=== PATIENT | female | born 1930 | race Caucasian/White ===

== ENCOUNTER → 2017-06-27 | Outpatient (CLI) | payer MEDICARE, OTHER ==
--- NOTE | 2017-06-27 17:03 | RADIOLOGY REPORT (SQ) ---
EXAM DESCRIPTION: CHEST PA/LATERAL COMPLETED DATE/TIME: 06/27/2017 4:39 pm REASON FOR STUDY: COUGH COMPARISON: None. EXAM PARAMETERS: NUMBER OF VIEWS: two views TECHNIQUE: Digital Frontal and Lateral radiographic views of the chest acquired. RADIATION DOSE: NA LIMITATIONS: none FINDINGS: LUNGS AND PLEURA: No opacities, masses or pneumothorax. No pleural effusion. MEDIASTINUM AND HILAR STRUCTURES: No masses or contour abnormalities. HEART AND VASCULAR STRUCTURES: Heart normal size. No evidence for failure. BONES: No acute findings. HARDWARE: None in the chest. OTHER: No other significant finding. IMPRESSION: NO SIGNIFICANT RADIOGRAPHIC FINDING IN THE CHEST. TECHNICAL DOCUMENTATION: JOB ID: [id number] [employer]- All Rights Reserved
== END ==
LOC: OD 15:16
PROVIDERS: ATTEND Physician Assistant
DX: R05 Cough (principal)
CPT/HCPCS: 71020

== ENCOUNTER → 2017-08-14 | Outpatient (CLI) | payer MEDICARE, OTHER ==
--- NOTE | 2017-08-14 16:20 | RADIOLOGY REPORT (SQ) ---
EXAM DESCRIPTION: KNEE LEFT 4 VIEWS COMPLETED DATE/TIME: 08/14/2017 3:20 pm REASON FOR STUDY: PAIN IN LEFT KNEE M25.562 PAIN IN LEFT KNEE M54.42 LUMBAGO WITH SCIATICA, LEFT S [place] COMPARISON: None. NUMBER OF VIEWS: Four views. TECHNIQUE: AP, lateral, and both oblique radiographic images acquired of the left knee. LIMITATIONS: None. FINDINGS: MINERALIZATION: Normal. BONES: No acute fracture or dislocation. No worrisome bone lesions. JOINT: Trace suprapatellar knee joint effusion SOFT TISSUES: No soft tissue swelling. No radio-opaque foreign body. OTHER: No other significant finding. IMPRESSION: Trace suprapatellar knee joint effusion. No acute fracture or malalignment TECHNICAL DOCUMENTATION: JOB ID: [id number] [employer]- All Rights Reserved
--- NOTE | 2017-08-14 16:25 | RADIOLOGY REPORT (SQ) ---
EXAM DESCRIPTION: LUMBAR SPINE COMPLETE COMPLETED DATE/TIME: 08/14/2017 3:20 pm REASON FOR STUDY: LUMBAGO WITH SCIATICA, LEFT SIDE M25.562 PAIN IN LEFT KNEE M54.42 LUMBAGO WITH S CIATICA, LEFT SIDE COMPARISON: None. NUMBER OF VIEWS: Five views including obliques. TECHNIQUE: AP, lateral, oblique, and sacral radiographic images acquired of the lumbar spine. LIMITATIONS: None. FINDINGS: MINERALIZATION: Osteopenic SEGMENTATION: Normal. No transitional anatomy. ALIGNMENT: Degenerative convex leftward lumbar curvature from multilevel disc space narrowing VERTEBRAE: Maintained height. No fracture or worrisome bone lesion. DISCS: High-grade disc space loss of height at a L2-3, L3-4, and L4-5 POSTERIOR ELEMENTS: Pedicles and facets are intact. No pars defect or posterior arch defects. Multi level facet arthropathy HARDWARE: Clips right upper quadrant post cholecystectomy PARASPINAL SOFT TISSUES: Normal. PELVIS: Intact as visualized. No fractures or worrisome bone lesions. SI joints intact. OTHER: No other significant finding. IMPRESSION: No acute changes. Multilevel degenerative disc changes with degenerative convex leftwar d lumbar curvature TECHNICAL DOCUMENTATION: JOB ID: [id number] [employer]- All Rights Reserved
== END ==
LOC: OD 14:44
PROVIDERS: ATTEND Physician Assistant
DX: M25.562 Pain in left knee (principal); M54.42 Lumbago with sciatica, left side
CPT/HCPCS: 72110

== ENCOUNTER → 2017-09-12 | Outpatient (CLI) | payer MEDICARE, OTHER ==
--- NOTE | 2017-09-12 14:20 | RADIOLOGY REPORT (SQ) ---
EXAM DESCRIPTION: MRI LUMBAR SPINE WITHOUT COMPLETED DATE/TIME: 09/12/2017 1:38 pm REASON FOR STUDY: LOW BACK PAIN M54.5 LOW BACK PAIN COMPARISON: Recent radiographs. TECHNIQUE: Sagittal and Axial imaging includes T1, T2, STIR and gradient echo sequences. Coronal T2/ HASTE imaging. LIMITATIONS: None. FINDINGS: VISUALIZED UPPER ABDOMEN: Limited evaluation. No acute or suspicious findings suggested. SEGMENTATION: No transitional anatomy. The lowest well-developed disc space is labeled L5-S1. ALIGNMENT: Mild scoliosis. VERTEBRAE: Intact. BONE MARROW: No fracture or bone lesion or marrow replacement. DISC SIGNAL: Multilevel abnormal disc signal with height loss diffusely. Endplate irregularities, mo st pronounced at L3-4 and L4-5 with minimal associated marrow edema. POSTERIOR ELEMENTS: Generally intact. No pars defect evident. HARDWARE: None in the spine. CORD AND CONUS: Normal in size and signal intensity. Conus at the appropriate level. SOFT TISSUES: No aortic aneurysm seen. No bulky retroperitoneal adenopathy or mass. No paraspinal mas s or fluid. L1-L2: No significant spinal stenosis or exit foraminal stenosis. L2-L3: Broad disc bulge with slightly eccentric right paracentral prominence. Mild facet disease. F airly mild central narrowing. No high-grade foraminal stenosis. L3-L4: Generalized disc bulge. Slightly conspicuous left paracentral eccentric extension. Mild face t disease. Generally mild central stenosis. Moderate right foraminal stenosis. L4-L5: Broad disc bulge and facet overgrowth. Mild -moderate central narrowing with at least moderat e left foraminal stenosis. L5-S1: Broad left paracentral -foraminal protrusion superimposed on disc bulge. Regional mass effect on the ventral thecal sac. Posterior ligament thickening and facet arthropathy with up to moderate central narrowing. Moderate left foraminal stenosis. LOWER THORACIC: Incompletely imaged. No stenosis seen. SACRUM: Visualized upper sacrum intact. OTHER: No other significant findings. IMPRESSION: 1. Multilevel lumbar spondylosis without critical central narrowing. Detailed as above. Multilevel foraminal stenosis is also present, up to moderate. 2. No fracture or worrisome bone le anatoly. Mild scoliosis is present. TECHNICAL DOCUMENTATION: JOB ID: [id number]- All Rights Reserved
== END ==
LOC: RAD 13:01
PROVIDERS: ATTEND Physician Assistant
DX: M54.5 Low back pain (principal); M47.896 Other spondylosis, lumbar region
CPT/HCPCS: 72148

== ENCOUNTER 2017-11-11 09:01 | Emergency (ER) | payer MEDICARE, OTHER ==
--- NOTE | 2017-11-11 09:44 | ER Document Report ---
ED Medical Screen (RME) - General Chief Complaint: Urinary Problem Stated Complaint: URINATION ISSUE/PAIN Time Seen by Provider: 11/11/17 09:34 Information source: Patient Notes: 87 y.o female with a past medical history of HTN for which she takes Amlodipine who presents to the ED with urinary pain and urgency with the inability to empty her bladder fully that has been present for about a week and a half. She states that her she saw her PCP on concerning this issue. TRAVEL OUTSIDE OF THE [place] IN LAST 30 DAYS: No - Related Data Allergies/Adverse Reactions: ciprofloxacin [From Cipro] Allergy (Verified 11/11/17 09:06) sulfamethoxazole [From Bactrim] Allergy (Verified 11/11/17 09:06) trimethoprim [From Bactrim] Allergy (Verified 11/11/17 09:06) doxycycline Adverse Reaction (Severe, Verified 11/11/17 09:30) GI upset Past Medical History - General Information source: Patient - Social History Chew tobacco use (# tins/day): No Frequency of alcohol use: Rare Drug Abuse: None - Past Medical History Cardiac Medical History: Reports: Hx Hypertension Renal/ Medical History: Denies: Hx Peritoneal Dialysis Review of Systems - Review of Systems Gastrointestinal: Abdominal pain Genitourinary: See HPI, Urgency, Retention Physical Exam - Vital signs Vitals: Temp Pulse Resp BP Pulse Ox 98.2 F 87 20 130/61 H 94 11/11/17 09:08 11/11/17 09:08 11/11/17 09:08 11/11/17 09:08 11/11/17 09:08 - General General appearance: Appears well, Alert In distress: None - Respiratory Respiratory status: No respiratory distress Chest status: Nontender Breath sounds: Normal Chest palpation: Normal - Cardiovascular Rhythm: Regular Heart sounds: Normal auscultation Murmur: No - Abdominal Inspection: Normal Tenderness: Nontender - Neurological Neuro grossly intact: Yes Cognition: Normal Orientation: AAOx4 - Psychological Associated symptoms: Normal affect, Normal mood - Skin Skin Temperature: Warm Skin Moisture: Dry Skin Color: Normal Course - Vital Signs Vital signs: Temp Pulse Resp BP Pulse Ox 98.2 F 87 20 130/61 H 94 11/11/17 09:08 11/11/17 09:08 11/11/17 09:08 11/11/17 09:08 11/11/17 09:08 Scribe Documentation - Scribe Written by Jo:: Jo Maradiaga, 11/11/2017 0946 acting as scribe for :: Hugo
[2017-11-11 10:20] LABS: APPEARANCE,URINE CLEAR; BILIRUBIN,URINE NEGATIVE (NEGATIVE); COLOR,URINE AMBER; GLUCOSE, URINE NEGATIVE (NEGATIVE); KETONES,URINE NEGATIVE (NEGATIVE); LEUKOCYTE ESTERASE,URINE NEGATIVE (NEGATIVE); NITRITE,URINE POSITIVE (NEGATIVE); PROTEIN,URINE NEGATIVE (NEGATIVE); URINE SPECIFIC GRAVITY 1.008
[2017-11-11 10:21] LABS: ABSOLUTE EOSINOPHILS # (AUTO) 0.1 10^3/uL (0.0-0.6); ABSOLUTE LYMPHOCYTES (AUTO) 1.7 10^3/uL (0.5-4.7); ABSOLUTE MONOCYTES (AUTO) 0.8 10^3/uL (0.1-1.4); ABSOLUTE NEUT (AUTO) 3.1 10^3/uL (1.7-8.2); BASOPHILS % (AUTO) 0.4 % (0-2); EOSINOPHILS % (AUTO) 1.2 % (0-6); HEMATOCRIT 36.5 % (36.0-47.0); HEMOGLOBIN 12.4 g/dL (12.0-15.5); LYMPHOCYTES % (AUTO) 29.7 % (13-45); MEAN CORPUSCULAR HEMOGLOBIN 31.9 pg (27.0-33.4); MEAN CORPUSCULAR VOLUME 94 fl (80-97); MONOCYTES % (AUTO) 13.9 % (3-13); PLATELET COUNT 188 10^3/uL (150-450); RED BLOOD COUNT 3.89 10^6/uL (3.72-5.28); RED CELL DISTRIBUTION WIDTH 14.2 % (11.5-14.0); SEGMENTED NEUTROPHILS % (AUTO) 54.8 % (42-78); TOTAL CELLS COUNTED % (AUTO) 100 %; WHITE BLOOD COUNT 5.6 10^3/uL (4.0-10.5)
[2017-11-11 10:45] LABS: ALANINE AMINOTRANSFERASE 21 U/L (9-52); ALBUMIN 4.4 g/dL (3.5-5.0); ALKALINE PHOSPHATASE 64 U/L (38-126); ANION GAP 17 (5-19); ASPARTATE AMINO TRANSFERASE 25 U/L (14-36); BILIRUBIN,TOTAL 0.9 mg/dL (0.2-1.3); BLOOD UREA NITROGEN 14 mg/dL (7-20); CALCIUM 9.4 mg/dL (8.4-10.2); CARBON DIOXIDE 21 mmol/L (22-30); CHLORIDE 104 mmol/L (98-107); GLUCOSE 87 mg/dL (75-110); SODIUM 141.6 mmol/L (137-145); TOTAL PROTEIN 7.2 g/dL (6.3-8.2)
--- NOTE | 2017-11-11 11:08 | RADIOLOGY REPORT (SQ) ---
EXAM DESCRIPTION: U/S RETROPERITON (RENAL/AORTA) COMPLETED DATE/TIME: 11/11/2017 10:59 am REASON FOR STUDY: urinary hesitancy, eval kidney anatomy and bladder COMPARISON: None. TECHNIQUE: Dynamic and static grayscale images acquired of the kidneys and bladder with pre and post void bladder volume obtain and recorded on PACS. Additional selected color Doppler and spectral image s recorded. LIMITATIONS: None. FINDINGS: RIGHT KIDNEY: Normal size. Normal echogenicity. No solid or suspicious masses. No hydronep hrosis. No calcifications. LEFT KIDNEY: Normal size. Normal echogenicity. No solid or suspicious masses. No hydronephrosis. No calcifications. BLADDER: No masses. Prevoid volume 209.0 mL. Postvoid volume 185.9 mL. OTHER FINDINGS: No other significant finding. IMPRESSION: SIGNIFICANT POSTVOID BLADDER VOLUME OF 185.9 mL. OTHERWISE UNREMARKABLE RENAL AND BLADD ER ULTRASOUND. TECHNICAL DOCUMENTATION: JOB ID: [id number] [employer]- All Rights Reserved Reading location - IP/workstation name: [email or web address]
[2017-11-11] MEDS ORDERED: CEFTRIAXONE INJ 1000 MG VIAL IM ONE (11:39)
[2017-11-11] MEDS ORDERED: LIDOCAINE 1% INJ-PF (10 MG/ML) 30 ML SDV INJ ONE (11:39)
--- NOTE | 2017-11-11 11:43 | ER Document Report ---
ED GI/ - General Chief Complaint: Urinary Problem Stated Complaint: URINATION ISSUE/PAIN Time Seen by Provider: 11/11/17 09:34 Mode of Arrival: Ambulatory Information source: Patient Notes: Patient is an 87-year-old female who presents to the ER today for burning with urination 1 week. Patient was seen by her primary care provider and placed on Keflex, states that she is still burning with urination and now feels like she cannot empty her bladder. She states when she urinates she only urinates a little bit at a time but feels like she has to go frequently. She denies any fevers or chills, admits to some low back pain. TRAVEL OUTSIDE OF THE [place] IN LAST 30 DAYS: No - Related Data Allergies/Adverse Reactions: ciprofloxacin [From Cipro] Allergy (Verified 11/11/17 09:06) sulfamethoxazole [From Bactrim] Allergy (Verified 11/11/17 09:06) trimethoprim [From Bactrim] Allergy (Verified 11/11/17 09:06) doxycycline Adverse Reaction (Severe, Verified 11/11/17 09:30) GI upset Past Medical History - General Information source: Patient - Social History Smoking Status: Never Smoker Chew tobacco use (# tins/day): No Frequency of alcohol use: Rare Drug Abuse: None Family History: Reviewed & Not Pertinent Patient has suicidal ideation: No Patient has homicidal ideation: No - Past Medical History Cardiac Medical History: Reports: Hx Hypertension Pulmonary Medical History: Reports: Hx Pneumonia Renal/ Medical History: Denies: Hx Peritoneal Dialysis Past Surgical History: Reports: Hx Abdominal Surgery - zipper d/c, Hx Appendectomy, Hx Cholecystectomy, Hx Hysterectomy, Hx Orthopedic Surgery - shane feet Review of Systems - Review of Systems Constitutional: No symptoms reported EENT: No symptoms reported Cardiovascular: No symptoms reported Respiratory: No symptoms reported Gastrointestinal: No symptoms reported Genitourinary: See HPI Female Genitourinary: No symptoms reported Musculoskeletal: No symptoms reported Skin: No symptoms reported Hematologic/Lymphatic: No symptoms reported Neurological/Psychological: No symptoms reported Physical Exam - Vital signs Vitals: Temp Pulse Resp BP Pulse Ox 98.2 F 87 20 130/61 H 94 11/11/17 09:08 11/11/17 09:08 11/11/17 09:08 11/11/17 09:08 11/11/17 09:08 - Notes Notes: PHYSICAL EXAMINATION: GENERAL: Well-appearing and in no acute distress. HEAD: Atraumatic, normocephalic. EYES: Pupils equal round and reactive to light, extraocular movements intact, sclera anicteric, conjunctiva are normal. NECK: Normal range of motion, supple without lymphadenopathy LUNGS: CTAB and equal. No wheezes rales or rhonchi. HEART: Regular rate and rhythm without murmurs ABDOMEN: Soft, suprapubic tenderness. No guarding, no rebound BACK: no vertebral tenderness, normal ROM GI/: Mild bilateral CVA tenderness EXTREMITIES: Normal range of motion, no pitting edema. No cyanosis. NEUROLOGICAL: Cranial nerves grossly intact. Normal sensory/motor exams. PSYCH: Normal mood, normal affect. SKIN: Warm, Dry, normal turgor, no rashes or lesions noted Course - Re-evaluation Re-evalutation: 11/11/17 17:47 urinalysis reveals nitrites, lab work is otherwise unremarkable today. Patient is allergic to Bactrim, Cipro and doxycycline, ultrasound reveals residual volume of 189 mL after patient just urinated. Otherwise ultrasound of the bladder is unremarkable. Patient had a straight catheterization here which relieved almost 300 mL of urine and will be placed on Omnicef. Urine culture is pending at this time. - Vital Signs Vital signs: Temp Pulse Resp BP Pulse Ox 97.7 F 73 16 144/60 H 94 11/11/17 12:27 11/11/17 12:27 11/11/17 12:27 11/11/17 12:27 11/11/17 12:27 - Laboratory Result Diagrams: 11/11/17 09:49 11/11/17 09:49 Laboratory results interpreted by me: 11/11/17 11/11/17 11/11/17 09:18 09:49 09:49 RDW 14.2 H Monocytes % 13.9 H Carbon Dioxide 21 L Urine Nitrite POSITIVE H Urine Urobilinogen 4.0 H Discharge - Discharge Clinical Impression: UTI (urinary tract infection) Qualifiers: Urinary tract infection type: site unspecified Hematuria presence: without hematuria Qualified Code(s): N39.0 - Urinary tract infection, site not specified Condition: Stable Disposition: HOME, SELF-CARE Additional Instructions: Return immediately for any new or worsening symptoms. Follow up with primary care provider, call tomorrow to make followup appointment. Prescriptions: Cefdinir [Omnicef 300 mg Capsule] 1 cap PO BID #28 capsule Phenazopyridine HCl [Pyridium 200 mg Tablet] 200 mg PO TID #15 tablet Referrals: MATT HAGAN PA [PHYSICIAN [employer] [facility] [employer]] - Follow up as needed
[2017-11-11 12:29] VITALS: BP 144/60
== END 2017-11-11 12:27 | disposition home or self-care (01) ==
LOC: ER 09:01
DX: N39.0 Urinary tract infection, site not specified (principal); R39.198 Other difficulties with micturition; R30.9 Painful micturition, unspecified
CPT/HCPCS: 99284; 96372; 51701; 36415; 87086; 85025; 80053; 81001; 76770; J3490; J0696

== ENCOUNTER 2017-11-14 07:10 | Emergency (ER) | payer OTHER ==
[2017-11-14] MEDS ORDERED: PANTOPRAZOLE SODIUM 40 MG VIAL IV PRN (08:17)
[2017-11-14] MEDS ORDERED: NORMAL SALINE 1000 ML 1,000 ML IV PRN (08:17)
--- NOTE | 2017-11-14 08:25 | ER Document Report ---
ED GI/ - General Chief Complaint: Urinary Problem Stated Complaint: PAINFUL URINATION Time Seen by Provider: 11/14/17 08:16 Information source: Patient Notes: 87 years old female who was diagnosed with UTI early last week, was given antibiotic. She states the antibiotic irritated the stomach having loose stools and which was bloody. She had about 3 bloody stools within the 24 hours. Therefore present to the ED. She denies any abdominal pain nausea vomiting. Denies any weakness or tiredness. Denies any chest pain or shortness of breath. TRAVEL OUTSIDE OF THE [place] IN LAST 30 DAYS: No - HPI Patient complains to provider of: Abdominal pain Timing/Duration: Gradual Severity at maximum: Moderate Context: denies: Bad food, Lifting, Out of the country travel, , Recent trauma, Other Location: No: Chest pain, Epigastric, LUQ, LLQ, RUQ, RLQ, Left flank, Right flank, Low back, Suprapubic, Pelvis, Vaginal, Vulvar, Rectal, Other - Related Data Allergies/Adverse Reactions: ciprofloxacin [From Cipro] Allergy (Verified 11/11/17 09:06) sulfamethoxazole [From Bactrim] Allergy (Verified 11/11/17 09:06) trimethoprim [From Bactrim] Allergy (Verified 11/11/17 09:06) doxycycline Adverse Reaction (Severe, Verified 11/11/17 09:30) GI upset Past Medical History - General Information source: Patient - Social History Smoking Status: Never Smoker Cigarette use (# per day): No Chew tobacco use (# tins/day): No Smoking Education Provided: No Frequency of alcohol use: Rare Drug Abuse: None Lives with: Family Family History: Reviewed & Not Pertinent - Past Medical History Cardiac Medical History: Reports: Hx Hypertension Pulmonary Medical History: Reports: Hx Pneumonia Renal/ Medical History: Denies: Hx Peritoneal Dialysis Past Surgical History: Reports: Hx Abdominal Surgery - zipper d/c, Hx Appendectomy, Hx Cholecystectomy, Hx Hysterectomy, Hx Orthopedic Surgery - shane feet Review of Systems - Review of Systems Constitutional: denies: No symptoms reported, See HPI, Chills, Diaphoresis, Fever, Malaise, Weakness, Other, Weight gain, Weight loss, Recent illness EENT: denies: No symptoms reported, See HPI, Eye pain, Eye discharge, Blurred vision, Tearing, Double vision, Ear pain, Ear discharge, Nose pain, Nose congestion, Nose discharge, Sinus pressure, Sinus discharge, Throat pain, Difficulty swallowing, Throat swelling, Mouth pain, Mouth swelling, Dental problem, Vertigo, Other Cardiovascular: denies: No symptoms reported, See HPI, Chest pain, Palpitations , Heart racing, Orthopnea, Dyspnea, Syncope, Dizziness, Lightheaded, Edema, Other, Paroxysmal Nocturnal Dysp Respiratory: denies: No symptoms reported, See HPI, Cough, Hurts to breathe, Hemoptysis, Short of breath, Sputum, Stridor, Wheezing, Other Gastrointestinal: See HPI Genitourinary: denies: No symptoms reported, See HPI, Burning, Dysuria, Discharge, Frequency, Flank pain, Hematuria, Incontinence, Pain, Urgency, Retention, Other Female Genitourinary: denies: No symptoms reported, See HPI, Last menstrual period, , Post menopausal, Heavy/abnormal periods, Irregular period, Vaginal bleeding, Vaginal discharge, Vaginal odor, Painful intercourse, Other Musculoskeletal: denies: No symptoms reported, See HPI, Back pain, Gout, Joint pain, Joint swelling, Muscle pain, Muscle stiffness, Neck pain, Deformity, Leg swelling, Ankle swelling, Other Skin: denies: No symptoms reported, See HPI, Change in color, Change in hair/ nails, Dryness, Lesions, Lumps, Rash, Other Physical Exam - Vital signs Vitals: Temp Pulse Resp BP Pulse Ox 98.0 F 78 20 106/79 96 11/14/17 07:16 11/14/17 07:16 11/14/17 07:16 11/14/17 07:16 11/14/17 07:16 - Notes Notes: PHYSICAL EXAMINATION: GENERAL: Well-appearing, well-nourished and in no acute distress. Appears to be anxious about the bleeding. HEAD: Atraumatic, normocephalic. EYES: Pupils equal round and reactive to light, extraocular movements intact, conjunctiva are normal. ENT: Nares patent, oropharynx clear without exudates. Moist mucous membranes. NECK: Normal range of motion, supple without lymphadenopathy LUNGS: Breath sounds clear to auscultation bilaterally and equal. No wheezes rales or rhonchi. HEART: Regular rate and rhythm without murmurs ABDOMEN: Soft, nontender, nondistended abdomen. No guarding, no rebound. No masses appreciated. Female : deferred Musculoskeletal: Normal range of motion, no pitting or edema. No cyanosis. NEUROLOGICAL: Cranial nerves grossly intact. Normal speech, normal gait. Normal sensory, motor exams PSYCH: Normal mood, normal affect. SKIN: Warm, Dry, normal turgor, no rashes or lesions noted. Course - Vital Signs Vital signs: Temp Pulse Resp BP Pulse Ox 98.0 F 78 20 106/79 96 11/14/17 07:16 11/14/17 07:16 11/14/17 07:16 11/14/17 07:16 11/14/17 07:16 - Laboratory Result Diagrams: 11/14/17 09:21 11/14/17 09:21 Laboratory results interpreted by me: 11/14/17 11/14/17 11/14/17 07:40 09:21 09:21 Hgb 11.8 L Hct 34.8 L RDW 14.4 H Chloride 111 H Carbon Dioxide 21 L Urine Nitrite POSITIVE H Urine Urobilinogen 4.0 H - Diagnostic Test Radiology reviewed: Reports reviewed Radiology results interpreted by me: 11/14/17 11:19 CTA of the abdomen shows no active bleeding, reported by radiologist, no other pathology noted. Rectal exam was positive for diego blood and hemorrhoids Discharge - Discharge Clinical Impression: Lower GI bleeding Abdominal pain Qualifiers: Abdominal location: epigastric Qualified Code(s): R10.13 - Epigastric pain Hemorrhoids Qualifiers: Hemorrhoid type: second degree Qualified Code(s): K64.1 - Second degree hemorrhoids UTI (urinary tract infection) Qualifiers: Urinary tract infection type: acute cystitis Hematuria presence: without hematuria Qualified Code(s): N30.00 - Acute cystitis without hematuria Condition: Fair Disposition: HOME, SELF-CARE Instructions: Abdominal Pain ([facility]), Hemorrhoids ([facility]) Prescriptions: Hydrocortisone Acetate [Anusol-Hc] 25 mg RC BID #14 supp.rect Nitrofurantoin Monohyd/M-Cryst [Nitrofurantoin [place]-Mcr 100 mg] 100 mg PO BID # 14 capsule
[2017-11-14 09:52] LABS: APPEARANCE,URINE SLIGHTLY-CLOUDY; BILIRUBIN,URINE NEGATIVE (NEGATIVE); GLUCOSE, URINE NEGATIVE (NEGATIVE); KETONES,URINE NEGATIVE (NEGATIVE); LEUKOCYTE ESTERASE,URINE NEGATIVE (NEGATIVE); NITRITE,URINE POSITIVE (NEGATIVE); PROTEIN,URINE NEGATIVE (NEGATIVE); URINE SPECIFIC GRAVITY 1.013
[2017-11-14 09:56] LABS: COLOR,URINE ORANGE
[2017-11-14 10:01] LABS: ALANINE AMINOTRANSFERASE 21 U/L (9-52); ALBUMIN 4.2 g/dL (3.5-5.0); ALKALINE PHOSPHATASE 61 U/L (38-126); ANION GAP 10 (5-19); ASPARTATE AMINO TRANSFERASE 24 U/L (14-36); BILIRUBIN,DIRECT 0.1 mg/dL (0.0-0.4); BILIRUBIN,TOTAL 1.1 mg/dL (0.2-1.3); BLOOD UREA NITROGEN 15 mg/dL (7-20); CALCIUM 9.4 mg/dL (8.4-10.2); CARBON DIOXIDE 21 mmol/L (22-30); CHLORIDE 111 mmol/L (98-107); GLUCOSE 85 mg/dL (75-110); POTASSIUM 3.8 mmol/L (3.6-5.0); SODIUM 142.3 mmol/L (137-145); TOTAL PROTEIN 6.9 g/dL (6.3-8.2)
[2017-11-14 10:13] LABS: ABSOLUTE EOSINOPHILS # (AUTO) 0.1 10^3/uL (0.0-0.6); ABSOLUTE LYMPHOCYTES (AUTO) 1.5 10^3/uL (0.5-4.7); ABSOLUTE MONOCYTES (AUTO) 0.7 10^3/uL (0.1-1.4); ABSOLUTE NEUT (AUTO) 3.5 10^3/uL (1.7-8.2); BASOPHILS % (AUTO) 0.3 % (0-2); HEMATOCRIT 34.8 % (36.0-47.0); HEMOGLOBIN 11.8 g/dL (12.0-15.5); MEAN CORPUSCULAR HEMOGLOBIN 31.6 pg (27.0-33.4); MEAN CORPUSCULAR HGB CONC 33.8 g/dL (32.0-36.0); MEAN CORPUSCULAR VOLUME 93 fl (80-97); MONOCYTES % (AUTO) 11.3 % (3-13); PLATELET COUNT 197 10^3/uL (150-450); RED BLOOD COUNT 3.73 10^6/uL (3.72-5.28); RED CELL DISTRIBUTION WIDTH 14.4 % (11.5-14.0); SEGMENTED NEUTROPHILS % (AUTO) 61.4 % (42-78); TOTAL CELLS COUNTED % (AUTO) 100 %; WHITE BLOOD COUNT 5.8 10^3/uL (4.0-10.5)
--- NOTE | 2017-11-14 10:45 | RADIOLOGY REPORT (SQ) ---
EXAM DESCRIPTION: CTA ABDOMEN/PELVIS W WO COMPLETED DATE/TIME: 11/14/2017 10:13 am REASON FOR STUDY: Rule out intestinal bleed COMPARISON: None. TECHNIQUE: CT scan of the abdominal aorta extending to the iliac bifurcation performed with intraven ous contrast using helical scanning technique with dynamic intravenous contrast injection. Images rev iewed with lung, soft tissue, and bone windows. Reconstructed coronal and sagittal MPR images reviewe d. All images stored on PACS. Advanced 3D imaging as volume rendering, MIPS, SSD performed? yes All CT scanners at this facility use dose modulation, iterative reconstruction, and/or weight based d osing when appropriate to reduce radiation dose to as low as reasonably achievable (ALARA). [facility]: Dose Right [facility]: CareDose [facility]: Dose Right [facility]: Teradose 4D [facility]: [employer] CONTRAST TYPE AND DOSE: contrast/concentration: Isovue 370.00 mg/ml; Total Contrast Delivered: 55.0 ml; Total Saline Delivered: 60.0 ml RENAL FUNCTION: Creatinine 0.88 LIMITATIONS: None. FINDINGS: POST-CONTRAST IMAGING: AORTA AND VESSELS: No aneurysm. No dissection. Scattered vascular calcifications are identified caty cially at the origin of the celiac axis. Minimal vascular calcifications are identified at the origi n of the superior mesenteric artery and renal arteries. LUNG BASES: No significant findings. No nodules or infiltrates. Minimal linear densities are identif ied in the lung bases most consistent with subsegmental atelectasis. Moderate size hiatal hernia is identified. LIVER: Normal size. No masses or dilated ducts. A small focal relative low density area is identifie d in the left lobe of the liver which is too small to further characterize by CT. SPLEEN: Normal size. No focal lesions. PANCREAS: No masses. No significant calcifications. No adjacent inflammation or peripancreatic fluid collections. There is some prominence of the pancreatic duct. GALLBLADDER: Status post cholecystectomy ADRENAL GLANDS: No significant masses or asymmetry. RIGHT KIDNEY AND URETER: No mass, calculi or urinary tract obstruction. LEFT KIDNEY AND URETER: No mass, calculi or urinary tract obstruction. Small renal cyst is identifie d. RETROPERITONEUM: No retroperitoneal adenopathy, hemorrhage or masses. BOWEL AND PERITONEAL CAVITY: No masses or inflammatory changes. No free fluid or peritoneal masses. Multiple colonic diverticula are identified in the sigmoid colon without CT evidence for diverticulit is. APPENDIX: Not identified ABDOMINAL WALL: No masses. No hernias. BONY STRUCTURES: No significant or acute findings. Degenerative changes are identified in the lumbar spine 3-D IMAGING: Confirms the above findings. OTHER: No other significant finding. IMPRESSION: NO ABDOMINAL AORTIC ANEURYSM, DISSECTION or. Vascular calcifications as noted above. NO other SIGNIFICANT FINDINGS IN THE ABDOMEN. Other findings as noted above TECHNICAL DOCUMENTATION: JOB ID: [id number] Quality ID # [id number]: Final reports with documentation of one or more dose reduction techniques (e.g., Au tomated exposure control, adjustment of the mA and/or kV according to patient size, use of iterative reconstruction technique) 2010 [employer]- All Rights Reserved Reading location - IP/workstation name: [email or web address]
[2017-11-14 12:07] VITALS: BP 132/62
== END 2017-11-14 12:53 | disposition home or self-care (01) ==
LOC: ER 07:10
DX: N30.00 Acute cystitis without hematuria (principal); K92.2 Gastrointestinal hemorrhage, unspecified; K64.1 Second degree hemorrhoids; R10.13 Epigastric pain; R39.198 Other difficulties with micturition; R30.9 Painful micturition, unspecified; R19.7 Diarrhea, unspecified
CPT/HCPCS: 99284; 96365; 96366; 36415; 85025; 82272; 80053; 81001; 74174; S0164; J7030

== ENCOUNTER 2018-03-27 09:44 | Day surgery (SDC) | payer MEDICARE, OTHER ==
--- NOTE | 2018-03-22 13:37 | EKG REPORT ---
SEVERITY:- ABNORMAL ECG - SINUS RHYTHM PROBABLE LEFT ATRIAL ABNORMALITY LEFT ANTERIOR FASCICULAR BLOCK : Confirmed by: Víctor Lay MD 22-Mar-2018 13:36:38
[~2018-03-27 09:44] MED LIST: CEFAZOLIN 2 GM/D5W RTU 2 GM/50 ML RTUPB IV SCH; DEXAMETHASONE SOD PHOSPHATE INJ 4 MG/1 ML VIAL ONE; FENTANYL CITRATE INJ/PF 100 MCG/2 ML AMPUL ONE; LACTATED RINGERS 1000 ML IV PRN; LIDOCAINE 2% INJ-PF (20 MG/ML) 10 ML AMPUL ONE; MIDAZOLAM 2 MG/2 ML INJ ONE; ONDANSETRON HCL INJ/PF 4 MG/2 ML SDV ONE; PROPOFOL INJ 200 MG/20 ML VIAL IV ONE
[2018-03-27] MEDS ORDERED: CEFAZOLIN 1 GM/D5W RTU 1 GM/50 ML RTUPB IV ONE (10:04)
[2018-03-27] MEDS ORDERED: LIDOCAINE 2% URO-JET 5 ML KIT ONE (12:00)
[2018-03-27] MEDS ORDERED: PROMETHAZINE HCL INJ 25 MG/1 ML VIAL IV PRN ×2 (12:18)
[2018-03-27] MEDS ORDERED: MEPERIDINE HCL/PF INJ 25 MG/1 ML DISP.SYRIN IV PRN (12:18)
[2018-03-27] MEDS ORDERED: FENTANYL CITRATE INJ/PF 100 MCG/2 ML AMPUL IV PRN ×2 (12:18)
[2018-03-27] MEDS ORDERED: DIPHENHYDRAMINE HCL 50 MG/ML VIAL IV PRN (12:18)
[2018-03-27] MEDS ORDERED: ONDANSETRON HCL INJ/PF 4 MG/2 ML SDV IV PRN (12:18)
[2018-03-27] MEDS ORDERED: FENTANYL CITRATE INJ/PF 100 MCG/2 ML AMPUL ONE ×2 (12:19→12:21)
[2018-03-27] MEDS ORDERED: SUCCINYLCHOLINE CHLORIDE INJ 200 MG/10 ML VIAL ONE (12:25)
[2018-03-27] MEDS: MEPERIDINE HCL/PF INJ 25 MG/1 ML DISP.SYRIN ONE ×2 (13:53→13:58)
--- NOTE | 2018-03-27 14:15 | RADIOLOGY REPORT (SQ) ---
EXAM DESCRIPTION: PYELOGRAM RETROGRADE COMPLETED DATE/TIME: 03/27/2018 1:45 pm REASON FOR STUDY: BILATERAL CYSTO RETROGRADES AND URETERAL DIALATION N35.9 URETHRAL STRICTURE, UNSP ECIFIED N39.0 URINARY TRACT INFECTION, SITE NOT SPECIFIED COMPARISON: CT abdomen and pelvis 11/14/2017 Renal ultrasound 11/11/2017 MRI lumbar spine 09/12/2017 FLUOROSCOPY TIME: 41 seconds 8 digital radiographic images saved to PACS. TECHNIQUE: Intra-operative images acquired during surgical procedure to evaluate progress. NUMBER OF IMAGES: 8 digital radiographic images saved to pac's LIMITATIONS: None. FINDINGS: Bilateral retrograde injections were performed in the cystoscopy suite. No urothelial les ions. Limited view of the bladder are unremarkable. Old calcified right retroperitoneal lymph node. Please see the operative report for further details IMPRESSION: Intra procedural imaging and fluoro COMMENT: Quality ID [id number]: Final reports for procedures using fluoroscopy that document radiation exp osure indices, or exposure time and number of fluorographic images (if radiation exposure indices are not available) Please consult full operative report of the attending physician for description of the procedure. TECHNICAL DOCUMENTATION: JOB ID: [id number] [employer]- All Rights Reserved Reading location - IP/workstation name: [email or web address]
--- NOTE | 2018-03-27 14:21 | OPERATIVE REPORT E ---
Operative Report NAME: UBALDO FELIX : 1930 AGE: 88Y DATE OF SURGERY: 03/27/2018 ROOM: PREOPERATIVE DIAGNOSIS: Urethral stenosis. 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 SURGEON: LAVON WEBER M.D. [employer]: None. SPECIMENS: Bladder tumor. ESTIMATED BLOOD LOSS: Minimum. COMPLICATIONS: None. INDICATIONS: The patient is an 88-year-old lady with a history of urethral stenosis. She was dilated almost 20 years ago. She had extended relief following that dilation. She has had more irritative voiding symptoms of late and feels she needs another urethral dilation. Urethral sounds were not available in the office so she is having cystoscopy with urethral dilation in the operating room. OPERATION: After the patient was identified in the preop holding area, she was brought to the Operating Room. Timeout was performed, where the correct patient and procedure were confirmed. She was then given sedation. She was next carefully positioned in a dorsolithotomy position. All pressure points were padded. She was prepped and draped in routine sterile manner. URETHRAL DILATION: A 24-36 Green[place]ic female urethral sound was used to dilate the urethra. Initially there was some stenosis encountered in the mid urethra but once this area was dilated with a 24-Greenlandic sound, the remaining dilations proceeded without difficulty. CYSTOSCOPY WITH TURBT: A #23 sheath and panendoscope was used to examine the urethra. There was as stenotic area in the mid-urethra but no evidence of a tumor. It appeared to be scar tissue. The bladder though showed a field change, the largest area was on the posterior bladder wall extending up to the trigone measuring 10 x 5 cm and there were patchy areas on the trigone and posterolateral to both ureteral orifices. There were several papillary lesions as well. These were resected with a resectoscope loop. The patient had been given general anesthesia to allow for resection of the tumors. There is a deep resection in one area. There is no evidence of perforation. The base and perforated sections were cauterized with the resectoscope loop as was the remaining bladder tumor appearing areas in the bladder. Hemostasis was present. BILATERAL RETROGRADES AND CYSTOGRAM: An open-ended catheter was positioned at the right ureteral orifice. Total of 5 mL of Omnipaque was used to fill the right ureter and upper collecting system. There is no evidence of obstruction or filling defect. IMPRESSION: Normal right retrograde. An open-ended catheter was positioned at the left ureteral orifice. A total of 5 mL of Omnipaque was used to fill the left ureter and upper collecting system. There is no evidence of filling defect or obstruction. IMPRESSION: Normal left retrograde. CYSTOGRAM: A total of 250 mL of contrast was used to fill the bladder. There is no evidence of any extravasation on the filling phase. The bladder was then emptied. Again, there was no evidence of extravasation. IMPRESSION: NORMAL CYSTOGRAM. The patient was returned to the recovery room having tolerated this procedure well. PLAN: I will leave the Corey catheter in for 1 week since she had an area of deep resection in her bladder. I will prescribe anticholinergic medication (Sanctura 60 mg daily) and cephalexin 5 mg q.i.d. x7 days. She will come back in 1 week to go over her pathology and remove her catheter. DICTATING PHYSICIAN: LAVON WEBER M.D. [id number] PHY#: [id number] ID: [id number] JOB#: [id number] ACCT: [id number] cc:LAVON WEBER M.D. >
[2018-03-27 16:16] VITALS: BP 114/63
== END 2018-03-27 16:20 | disposition home or self-care (01) ==
LOC: OROUT 09:44
PROVIDERS: ATTEND Urology
PROC: 0TBB8ZX Excision of Bladder, Via Natural or Artificial Opening Endoscopic, Diagnostic (ICD-10-PCS; principal; 2018-03-27 12:00)
DX: N35.9 Urethral stricture, unspecified (principal); N30.00 Acute cystitis without hematuria; N30.01 Acute cystitis with hematuria; I10 Essential (primary) hypertension; K21.9 Gastro-esophageal reflux disease without esophagitis
CPT/HCPCS: 93005; 87086; 88162; 88342 ×2; 88341 ×2; 88305 ×2; 74420; 93010; 52240; C1758; J2250; J0690; J1100; J3010; J2175; J0330; J2405; J2704; J3490; 910

== ENCOUNTER 2018-04-21 12:25 | Inpatient (IN) | payer MEDICARE, OTHER ==
[2018-04-21] MEDS ORDERED: ONDANSETRON 4 MG TAB.RAPDIS PO ONE (12:45)
[2018-04-21] MEDS ORDERED: NORMAL SALINE 1000 ML 1,000 ML IV ONE (12:45)
[2018-04-21] MEDS ORDERED: ASPIRIN 81 MG TABLET, CHEWABLE PO ONE (12:45)
--- NOTE | 2018-04-21 12:54 | ER Document Report ---
ED Medical Screen (RME) - General Mode of Arrival: Ambulatory Information source: Patient TRAVEL OUTSIDE OF THE [place] IN LAST 30 DAYS: No <LELA MANZANO - Last Filed: 04/21/18 12:49> <GLENNA HEARD - Last Filed: 04/21/18 13:26> - General Chief Complaint: Nausea Stated Complaint: NAUSEA, BACK PAIN Time Seen by Provider: 04/21/18 12:35 Notes: Patient is a 88 year old female with arthritis, HTN, and acid reflux presents to the emergency department complaining of nausea, weakness, diarrhea, and decreased appetite onset the last few weeks. Patient states her nausea has increasingly worsened and she has been unable to hold any food down recently further stating the thought of eating makes her nauseous. Patient states drinking sprite seems to relive her nausea. Daughter at bedside states the patient is also losing weight. Patient describes her bowel movement as constipation in the morning and diarrhea by the end of the day. She also complains of body aches all over, particularly in her back. Patient denies any vomiting or abdominal pain. Daughter states patient recently had a bladder dilation and mass removal for which she is awaiting results. GENERAL: In a wheelchair. Alert, interacts well. No acute distress. HEAD: Normocephalic, Atraumatic. NECK: Full range of motion. Supple. Trachea midline. LUNGS: Clear to auscultation bilaterally, no wheezes, rales, or rhonchi. No respiratory distress. HEART: Regular rate and rhythm. No murmurs, gallops, or rubs. ABDOMEN: Soft, non-tender. Non-distended. Bowel sounds present in all 4 quadrants. EXTREMITIES: Moves all four extremities spontaneously. PSYCH: Normal affect, normal mood. I have greeted and performed a rapid initial assessment of this patient. A comprehensive ED assessment and evaluation of the patient, analysis of test results and completion of the medical decision making process will be conducted by additional ED providers. (LELA MANZANO) - Related Data Allergies/Adverse Reactions: doxycycline Allergy (Severe, Verified 04/21/18 12:26) GI upset nitrofurantoin [From Macrobid] Allergy (Severe, Verified 04/21/18 12:26) headaches, nausea celecoxib [From Celebrex] Allergy (Verified 04/21/18 12:26) ciprofloxacin [From Cipro] Allergy (Verified 04/21/18 12:26) oxycodone Allergy (Verified 04/21/18 12:26) sulfamethoxazole [From Bactrim] Allergy (Verified 04/21/18 12:26) trimethoprim [From Bactrim] Allergy (Verified 04/21/18 12:26) Past Medical History - Social History Chew tobacco use (# tins/day): No Frequency of alcohol use: None Drug Abuse: None - Past Medical History Cardiac Medical History: Reports: Hx Hypertension Denies: Hx Coronary Artery Disease, Hx Heart Attack Pulmonary Medical History: Reports: Hx Pneumonia - 2014 Denies: Hx Asthma, Hx Bronchitis, Hx COPD Neurological Medical History: Denies: Hx Cerebrovascular Accident, Hx Seizures Renal/ Medical History: Denies: Hx Peritoneal Dialysis GI Medical History: Reports: Hx Gastroesophageal Reflux Disease Musculoskeltal Medical History: Past Surgical History: Reports: Hx Abdominal Surgery - zipper d/c, Hx Appendectomy, Hx Cholecystectomy, Hx Hysterectomy, Hx Orthopedic Surgery - shane feet - Immunizations Hx Diphtheria, Pertussis, Tetanus Vaccination: Yes - 09/17/2007 History of Influenza Vaccine for 06/2017 - 11/2017 Season: No <LELA MANZANO - Last Filed: 04/21/18 12:49> - Vital signs Vitals: Temp Pulse Resp BP Pulse Ox 98.2 F 88 16 99/76 L 96 04/21/18 12:30 04/21/18 12:30 04/21/18 12:30 04/21/18 12:30 04/21/18 12:30 Course - Laboratory Result Diagrams: 04/21/18 13:00 04/21/18 13:00 <GLENNA HEARD - Last Filed: 04/21/18 13:26> - Vital Signs Vital signs: Temp Pulse Resp BP Pulse Ox 98.2 F 88 16 99/76 L 96 04/21/18 12:30 04/21/18 12:30 04/21/18 12:30 04/21/18 12:30 04/21/18 12:30 - Laboratory Laboratory results interpreted by me: 04/21/18 13:00 Hgb 11.8 L Hct 34.5 L RDW 14.1 H Monocytes % 16.7 H Doctor's Discharge <LELA MANZANO - Last Filed: 04/21/18 12:49> <GLENNA HEARD - Last Filed: 04/21/18 13:26> - Discharge Referrals: EVELYN MINER MD [Primary Care Provider] - Follow up as needed
[2018-04-21 13:22] LABS: ABSOLUTE EOSINOPHILS # (AUTO) 0.1 10^3/uL (0.0-0.6); ABSOLUTE LYMPHOCYTES (AUTO) 2.2 10^3/uL (0.5-4.7); ABSOLUTE MONOCYTES (AUTO) 1.2 10^3/uL (0.1-1.4); ABSOLUTE NEUT (AUTO) 3.7 10^3/uL (1.7-8.2); BASOPHILS % (AUTO) 0.3 % (0-2); EOSINOPHILS % (AUTO) 1.5 % (0-6); HEMATOCRIT 34.5 % (36.0-47.0); HEMOGLOBIN 11.8 g/dL (12.0-15.5); LYMPHOCYTES % (AUTO) 30.9 % (13-45); MEAN CORPUSCULAR HEMOGLOBIN 31.6 pg (27.0-33.4); MEAN CORPUSCULAR HGB CONC 34.1 g/dL (32.0-36.0); MEAN CORPUSCULAR VOLUME 93 fl (80-97); MONOCYTES % (AUTO) 16.7 % (3-13); PLATELET COUNT 231 10^3/uL (150-450); RED BLOOD COUNT 3.72 10^6/uL (3.72-5.28); RED CELL DISTRIBUTION WIDTH 14.1 % (11.5-14.0); SEGMENTED NEUTROPHILS % (AUTO) 50.6 % (42-78); TOTAL CELLS COUNTED % (AUTO) 100 %; WHITE BLOOD COUNT 7.3 10^3/uL (4.0-10.5)
[2018-04-21 13:45] LABS: ALANINE AMINOTRANSFERASE 10 U/L (9-52); ALBUMIN 3.9 g/dL (3.5-5.0); ALKALINE PHOSPHATASE 78 U/L (38-126); ANION GAP 17 (5-19); ASPARTATE AMINO TRANSFERASE 21 U/L (14-36); BILIRUBIN,DIRECT 0.3 mg/dL (0.0-0.4); BILIRUBIN,TOTAL 0.5 mg/dL (0.2-1.3); BLOOD UREA NITROGEN 19 mg/dL (7-20); CALCIUM 9.3 mg/dL (8.4-10.2); CARBON DIOXIDE 21 mmol/L (22-30); CHLORIDE 105 mmol/L (98-107); CREATINE KINASE 59 U/L (30-135); GLUCOSE 91 mg/dL (75-110); LIPASE 143.5 U/L (23-300); SODIUM 143.2 mmol/L (137-145); TOTAL PROTEIN 6.7 g/dL (6.3-8.2)
[2018-04-21 13:55] LABS: CREATINE KINASE MB 0.96 ng/mL (<4.55)
[2018-04-21 14:00] LABS: TROPONIN I < 0.012 ng/mL
--- NOTE | 2018-04-21 14:48 | RADIOLOGY REPORT (SQ) ---
EXAM DESCRIPTION: CHEST SINGLE VIEW COMPLETED DATE/TIME: 04/21/2018 1:28 pm REASON FOR STUDY: fatigue, nausea COMPARISON: None. EXAM PARAMETERS: NUMBER OF VIEWS: One view. TECHNIQUE: Single frontal radiographic view of the chest acquired. RADIATION DOSE: NA LIMITATIONS: None. FINDINGS: LUNGS AND PLEURA: No acute infiltrates or effusions. . MEDIASTINUM AND HILAR STRUCTURES: No masses. Contour normal. HEART AND VASCULAR STRUCTURES: The heart is normal. Pulmonary vasculature is normal. BONES: No acute findings. HARDWARE: None in the chest. OTHER: Chest leads in place. IMPRESSION: No acute disease. TECHNICAL DOCUMENTATION: JOB ID: [id number] [id number] [employer]- All Rights Reserved Reading location - IP/workstation name: [email or web address]
[2018-04-21 14:57] LABS: AMORPHOUS SEDIMENT,URINE TRACE /HPF; APPEARANCE,URINE CLOUDY; BILIRUBIN,URINE NEGATIVE (NEGATIVE); COLOR,URINE YELLOW; GLUCOSE, URINE NEGATIVE (NEGATIVE); KETONES,URINE NEGATIVE (NEGATIVE); LEUKOCYTE ESTERASE,URINE LARGE (NEGATIVE); NITRITE,URINE POSITIVE (NEGATIVE); PROTEIN,URINE NEGATIVE (NEGATIVE); URINE SPECIFIC GRAVITY 1.006; UROBILINOGEN,URINE NEGATIVE mg/dL (<2.0)
[2018-04-21] MEDS ORDERED: CEFTRIAXONE 1 GM/D5W RTU 1 GM/50 ML RTUPB IV ONE (15:53)
--- NOTE | 2018-04-21 16:13 | ER Document Report ---
ED General - General Chief Complaint: Nausea Stated Complaint: NAUSEA, BACK PAIN Time Seen by Provider: 04/21/18 12:35 Mode of Arrival: Ambulatory Information source: Patient Notes: Patient is an 88-year-old female that presents today stating that she has felt some weakness and fatigue for "many weeks". She states some recent nausea with a decreased appetite and weight loss. She states she has had around 2-4 bouts of diarrhea almost daily for around 3-4 weeks. He denies any blood in the diarrhea. Patient denies any chest pain, any abdominal pain, any flank pain, any dysuria, any fevers, any headache, weakness or numbness. Patient does state that she has some chronic lower back pain but denies any recent falls. She denies any weakness of her legs. She denies any incontinence. Patient states she did have a urethral stricture dilation on March 27. Prior to that she was having multiple urinary tract infections. TRAVEL OUTSIDE OF THE [place] IN LAST 30 DAYS: No - HPI Onset: Other - See above Onset/Duration: Gradual Quality of pain: No pain Severity: None Pain Level: Denies Associated symptoms: Other - See above Exacerbated by: Denies Relieved by: Denies Similar symptoms previously: Yes Recently seen / treated by doctor: Yes - Related Data Allergies/Adverse Reactions: doxycycline Allergy (Severe, Verified 04/21/18 12:26) GI upset nitrofurantoin [From Macrobid] Allergy (Severe, Verified 04/21/18 12:26) headaches, nausea celecoxib [From Celebrex] Allergy (Verified 04/21/18 12:26) ciprofloxacin [From Cipro] Allergy (Verified 04/21/18 12:26) oxycodone Allergy (Verified 04/21/18 12:26) sulfamethoxazole [From Bactrim] Allergy (Verified 04/21/18 12:26) trimethoprim [From Bactrim] Allergy (Verified 04/21/18 12:26) Past Medical History - General Information source: Patient - Social History Smoking Status: Never Smoker Cigarette use (# per day): No Chew tobacco use (# tins/day): No Smoking Education Provided: No Frequency of alcohol use: None Drug Abuse: None Family History: Reviewed & Not Pertinent Patient has suicidal ideation: No Patient has homicidal ideation: No - Past Medical History Cardiac Medical History: Reports: Hx Hypertension Denies: Hx Coronary Artery Disease, Hx Heart Attack Pulmonary Medical History: Reports: Hx Pneumonia - 2015 Denies: Hx Asthma, Hx Bronchitis, Hx COPD Neurological Medical History: Denies: Hx Cerebrovascular Accident, Hx Seizures Renal/ Medical History: Denies: Hx Peritoneal Dialysis GI Medical History: Reports: Hx Gastroesophageal Reflux Disease Musculoskeletal Medical History: Past Surgical History: Reports: Hx Abdominal Surgery - zipper d/c, Hx Appendectomy, Hx Cholecystectomy, Hx Hysterectomy, Hx Orthopedic Surgery - shane feet - Immunizations Hx Diphtheria, Pertussis, Tetanus Vaccination: Yes - 09/17/2007 Review of Systems - Review of Systems Constitutional: denies: Fever EENT: denies: Eye discharge, Nose discharge Cardiovascular: denies: Chest pain, Palpitations Respiratory: denies: Short of breath Gastrointestinal: denies: Vomiting Genitourinary: denies: Dysuria Musculoskeletal: denies: Leg swelling Skin: Other - no hives. denies: Rash Neurological/Psychological: Other - no slurred speech -: Yes All other systems reviewed and negative Physical Exam - Vital signs Vitals: Temp Pulse Resp BP Pulse Ox 98.2 F 88 16 99/76 L 96 04/21/18 12:30 04/21/18 12:30 04/21/18 12:30 04/21/18 12:30 04/21/18 12:30 Notes: Reviewed vital signs and nursing note as charted by RN. CONSTITUTIONAL: Alert and oriented and responds appropriately to questions. Well -appearing; well-nourished HEAD: Normocephalic; atraumatic EYES: Sclerae non-icteric ENT: Normal nose; no rhinorrhea; moist mucous membranes NECK: Supple without meningismus; non-tender CARD: Regular rate and rhythm; no murmurs; symmetric distal pulses RESP: Normal chest excursion without splinting or tachypnea; breath sounds clear and equal bilaterally ABD/GI: Normal bowel sounds; non-distended; soft, no palpable masses or abdominal bruits present; old abdominal surgical scars consistent with history; mild tenderness to the suprapubic region without rebound or guarding BACK: The back appears normal and is non-tender to palpation, there is no CVA tenderness EXT: Normal ROM in all joints; non-tender to palpation, no edema SKIN: Normal color for age and race; warm; no acute lesions noted NEURO: Moves all extremities equally; Motor and sensory function intact PSYCH: The patient's mood and manner are appropriate. Grooming and personal hygiene are appropriate. Course - Re-evaluation Re-evalutation: Given the above history and physical examination, I will order basic labs, catheterized urine analysis, and reassess. An x-ray of the chest was ordered in triage. 04/21/18 16:13 Labs and urine analysis as recorded. This was a catheterized specimen. Urine culture has been sent. Rocephin has been given. 04/21/18 16:14 Reviewing the patient's previous course, it appears that the patient also was found to have a mass that is pending biopsy results on the urethral dilation. Patient's urine culture from that time was negative. Patient's November urine analysis and culture showed E. coli that was pretty ayoub susceptible. - Vital Signs Vital signs: Temp Pulse Resp BP Pulse Ox 98.2 F 88 16 99/76 L 96 04/21/18 12:30 04/21/18 12:30 04/21/18 12:30 04/21/18 12:30 04/21/18 12:30 - Laboratory Result Diagrams: 04/21/18 13:00 04/21/18 13:00 Laboratory results interpreted by me: 04/21/18 04/21/18 04/21/18 13:00 13:00 14:30 Hgb 11.8 L Hct 34.5 L RDW 14.1 H Monocytes % 16.7 H Carbon Dioxide 21 L Urine Blood LARGE H Urine Nitrite POSITIVE H Ur Leukocyte Esterase LARGE H Discharge - Discharge Clinical Impression: UTI (urinary tract infection) Qualifiers: Urinary tract infection type: acute cystitis Hematuria presence: with hematuria Qualified Code(s): N30.01 - Acute cystitis with hematuria Disposition: ADMITTED OBSERVATION Admitting Provider: Gómez Referrals: EVELYN MINER MD [Primary Care Provider] - Follow up as needed
[2018-04-21] MEDS ORDERED: CEFTRIAXONE INJ 1000 MG VIAL ONE (16:56)
[2018-04-21] MEDS ORDERED: ACETAMINOPHEN 325 MG TABLET PO PRN (19:39)
[2018-04-21 20:59] LABS: ABSOLUTE EOSINOPHILS # (AUTO) 0.1 10^3/uL (0.0-0.6); ABSOLUTE LYMPHOCYTES (AUTO) 1.6 10^3/uL (0.5-4.7); ABSOLUTE MONOCYTES (AUTO) 0.9 10^3/uL (0.1-1.4); BASOPHILS % (AUTO) 0.2 % (0-2); EOSINOPHILS % (AUTO) 2.2 % (0-6); HEMATOCRIT 29.7 % (36.0-47.0); HEMOGLOBIN 10.2 g/dL (12.0-15.5); LYMPHOCYTES % (AUTO) 28.1 % (13-45); MEAN CORPUSCULAR HEMOGLOBIN 31.8 pg (27.0-33.4); MEAN CORPUSCULAR HGB CONC 34.4 g/dL (32.0-36.0); MEAN CORPUSCULAR VOLUME 93 fl (80-97); MONOCYTES % (AUTO) 16.8 % (3-13); PLATELET COUNT 183 10^3/uL (150-450); RED BLOOD COUNT 3.22 10^6/uL (3.72-5.28); RED CELL DISTRIBUTION WIDTH 14.3 % (11.5-14.0); SEGMENTED NEUTROPHILS % (AUTO) 52.7 % (42-78); TOTAL CELLS COUNTED % (AUTO) 100 %; WHITE BLOOD COUNT 5.6 10^3/uL (4.0-10.5)
[2018-04-21 21:17] LABS: ANION GAP 14 (5-19); BLOOD UREA NITROGEN 16 mg/dL (7-20); CALCIUM 8.6 mg/dL (8.4-10.2); CARBON DIOXIDE 19 mmol/L (22-30); CHLORIDE 110 mmol/L (98-107); GLUCOSE 145 mg/dL (75-110); POTASSIUM 3.9 mmol/L (3.6-5.0)
--- NOTE | 2018-04-21 23:51 | EKG REPORT ---
SEVERITY:- ABNORMAL ECG - SINUS RHYTHM LEFT ANTERIOR FASCICULAR BLOCK : Confirmed by: Yandel Flannery 21-Apr-2018 23:51:01
[2018-04-22 02:51] LABS: APPEARANCE,URINE SLIGHTLY-CLOUDY; BILIRUBIN,URINE NEGATIVE (NEGATIVE); COLOR,URINE YELLOW; GLUCOSE, URINE NEGATIVE (NEGATIVE); KETONES,URINE NEGATIVE (NEGATIVE); LEUKOCYTE ESTERASE,URINE LARGE (NEGATIVE); NITRITE,URINE NEGATIVE (NEGATIVE); PROTEIN,URINE NEGATIVE (NEGATIVE); URINE SPECIFIC GRAVITY 1.011; UROBILINOGEN,URINE NEGATIVE mg/dL (<2.0)
[2018-04-22 09:58] LABS: ABSOLUTE RETICS # 0.053 10^6/uL (0.028-0.122); RETICULOCYTE COUNT (AUTO) 1.62 % (0.66-2.85)
[2018-04-22] MEDS ORDERED: CEFTRIAXONE 1 GM/D5W RTU 1 GM/50 ML RTUPB IV SCH (10:00)
[2018-04-22 10:18] LABS: IRON(TIBC) 30.4 ug/dL (37-170)
[2018-04-22] MEDS: ONDANSETRON HCL INJ/PF 4 MG/2 ML SDV IV PRN ×2 (10:57→18:36)
[2018-04-22] MEDS: ENOXAPARIN SODIUM INJ 40 MG/0.4 ML DISP.SYRIN SUBCUT SCH (10:57)
--- NOTE | 2018-04-22 16:28 | PDOC H&P ---
History of Present Illness Admission Date/PCP: 04/21/18 17:31 EVELYN MINER MD Patient complains of: Weakness and UTI History of Present Illness: UBALDO FELIX is a 88 year old female This is a 88-year-old female with the significant history of the chronic urinary tract infections with a recently have a urethroscope was done and a biopsy was done which is benign and also a history of the chronic Back pain and currently see a pain management history of the anemia and other multiple comorbidity came to the emergency department because complaining of some nausea and weakness any urinary symptoms According to the patient since after the procedures patient is not eating or drinking well patients lose more weight patient also have a loose stool Patient's denied any abdominal cramps denied any pain or any fever or chills In the emergency department patients found anemic and patient also have a urinary tract infection and started on the Rocephin When I saw the patient on the floor patient's denied any chest pain denied any shortness of breath Since then any nausea no vomiting Patient have a very extensive evaluation done by the urology review the record with service the patient benign Past Medical History Cardiac Medical History: Reports: Hypertension Denies: Coronary Artery Disease, Myocardial Infarction Pulmonary Medical History: Reports: Pneumonia - 2014 Denies: Asthma, Bronchitis, Chronic Obstructive Pulmonary Disease (COPD) Neurological Medical History: Denies: Seizures GI Medical History: Reports: Gastroesophageal Reflux Disease Musculoskeltal Medical History: Hematology: Reports: Anemia - after pneumonia 2014 Past Surgical History Past Surgical History: Reports: Appendectomy, Cholecystectomy, Hysterectomy, Orthopedic Surgery - shane feet Social History Information Source: Patient Smoking Status: Never Smoker Frequency of Alcohol Use: None Hx Recreational Drug Use: No Hx Prescription Drug Abuse: No Family History Family History: Reviewed & Not Pertinent Parental Family History Reviewed: Yes Children Family History Reviewed: Yes Sibling(s) Family History Reviewed.: Yes Medication/Allergy Home Medications: Acetaminophen [Tylenol Arthritis 650 mg Tablet] 650 mg PO DAILY 04/22/18 Amlodipine Besylate [Norvasc 10 mg Tablet] 10 mg PO DAILY 04/22/18 Allergies/Adverse Reactions: doxycycline Allergy (Severe, Verified 04/21/18 12:26) GI upset nitrofurantoin [From Macrobid] Allergy (Severe, Verified 04/21/18 12:26) headaches, nausea celecoxib [From Celebrex] Allergy (Verified 04/21/18 12:26) ciprofloxacin [From Cipro] Allergy (Verified 04/21/18 12:26) oxycodone Allergy (Verified 04/21/18 12:26) sulfamethoxazole [From Bactrim] Allergy (Verified 04/21/18 12:26) trimethoprim [From Bactrim] Allergy (Verified 04/21/18 12:26) Review of Systems Constitutional: ABSENT: chills, fever(s), headache(s), weight gain, weight loss Eyes: ABSENT: visual disturbances Ears: ABSENT: hearing changes Cardiovascular: ABSENT: chest pain, dyspnea on exertion, edema, orthropnea, palpitations Respiratory: ABSENT: cough, hemoptysis Gastrointestinal: ABSENT: abdominal pain, constipation, diarrhea, hematemesis, hematochezia, nausea, vomiting Genitourinary: ABSENT: dysuria, hematuria Musculoskeletal: ABSENT: joint swelling Integumentary: ABSENT: rash, wounds Neurological: ABSENT: abnormal gait, abnormal speech, confusion, dizziness, focal weakness, syncope Psychiatric: ABSENT: anxiety, depression, homidical ideation, suicidal ideation Endocrine: ABSENT: cold intolerance, heat intolerance, menstrual abnormalities, polydipsia, polyuria Hematologic/Lymphatic: ABSENT: easy bleeding, easy bruising, lymphadenopathy Physical Exam Vital Signs: Temp Pulse Resp BP Pulse Ox 97.7 F 76 17 109/53 L 94 04/22/18 16:00 04/22/18 16:00 04/22/18 16:00 04/22/18 16:00 04/22/18 16:00 Intake & Output 04/21/18 04/22/18 04/23/18 06:59 06:59 06:59 Output Total 100 Balance -100 Weight 53.1 kg General appearance: PRESENT: no acute distress, well-developed, well-nourished Head exam: PRESENT: atraumatic, normocephalic Eye exam: PRESENT: conjunctiva pink, EOMI, PERRLA. ABSENT: scleral icterus Ear exam: PRESENT: normal external ear exam Mouth exam: PRESENT: moist, tongue midline Neck exam: PRESENT: full ROM. ABSENT: carotid bruit, JVD, lymphadenopathy, thyromegaly Respiratory exam: PRESENT: clear to auscultation shane Cardiovascular exam: PRESENT: RRR. ABSENT: diastolic murmur, rubs, systolic murmur Pulses: PRESENT: normal dorsalis pedis pul, +2 pedal pulses bilateral Vascular exam: PRESENT: normal capillary refill GI/Abdominal exam: PRESENT: normal bowel sounds, soft. ABSENT: distended, guarding, mass, organolmegaly, rebound, tenderness Rectal exam: PRESENT: deferred Extremities exam: ABSENT: pedal edema Neurological exam: PRESENT: alert, awake, oriented to person, oriented to place , oriented to time, oriented to situation, CN II-XII grossly intact. ABSENT: motor sensory deficit Psychiatric exam: PRESENT: appropriate affect, normal mood. ABSENT: homicidal ideation, suicidal ideation Skin exam: PRESENT: dry, intact, warm. ABSENT: cyanosis, rash Results Laboratory Results: 04/21/18 20:45 04/21/18 20:45 04/21/18 04/21/18 04/22/18 20:45 20:45 01:55 WBC 5.6 RBC 3.22 L Hgb 10.2 L Hct 29.7 L MCV 93 MCH 31.8 MCHC 34.4 RDW 14.3 H Plt Count 183 Seg Neutrophils % 52.7 Lymphocytes % 28.1 Monocytes % 16.8 H Eosinophils % 2.2 Basophils % 0.2 Absolute Neutrophils 3.0 Absolute Lymphocytes 1.6 Absolute Monocytes 0.9 Absolute Eosinophils 0.1 Absolute Basophils 0.0 Retic Count (auto) Absolute Retic Sodium 143.0 Potassium 3.9 Chloride 110 H Carbon Dioxide 19 L Anion Gap 14 BUN 16 Creatinine 0.81 Est GFR ( Amer) > 60 Est GFR (Non-Af Amer) > 60 Glucose 145 H Calcium 8.6 Iron TIBC % Saturation Ferritin Vitamin B12 Folate Urine Color YELLOW Urine Appearance SLIGHTLY-CLOUDY Urine pH 5.0 Ur Specific [place] 1.011 Urine Protein NEGATIVE Urine Glucose (UA) NEGATIVE Urine Ketones NEGATIVE Urine Blood SMALL H Urine Nitrite NEGATIVE Ur Leukocyte Esterase LARGE H Urine WBC (Auto) >182 Urine RBC (Auto) 19 04/22/18 04/22/18 09:40 09:40 WBC RBC Hgb Hct MCV MCH MCHC RDW Plt Count Seg Neutrophils % Lymphocytes % Monocytes % Eosinophils % Basophils % Absolute Neutrophils Absolute Lymphocytes Absolute Monocytes Absolute Eosinophils Absolute Basophils Retic Count (auto) 1.62 Absolute Retic 0.053 Sodium Potassium Chloride Carbon Dioxide Anion Gap BUN Creatinine Est GFR ( Amer) Est GFR (Non-Af Amer) Glucose Calcium Iron 30.4 L TIBC 224 L % Saturation 14 Ferritin 92.00 Vitamin B12 > 1000.0 H Folate 18.30 Urine Color Urine Appearance Urine pH Ur Specific [place] Urine Protein Urine Glucose (UA) Urine Ketones Urine Blood Urine Nitrite Ur Leukocyte Esterase Urine WBC (Auto) Urine RBC (Auto) Impressions: Chest X-Ray 04/21/18 12:45 IMPRESSION: No acute disease. Assessment & Plan - Diagnosis (1) UTI (urinary tract infection) Qualifiers: Urinary tract infection type: acute cystitis Hematuria presence: with hematuria Qualified Code(s): N30.01 - Acute cystitis with hematuria Is this a current diagnosis for this admission?: Yes Plan: We will start the patient on IV antibiotics will get the culture and sensitivity and consult the urology with recent procedures (2) Weakness Is this a current diagnosis for this admission?: Yes Plan: Will get the physical therapy evaluations (3) Chronic back pain Qualifiers: Back pain location: low back pain Is this a current diagnosis for this admission?: Yes (4) Anemia Qualifiers: Anemia type: unspecified type Qualified Code(s): D64.9 - Anemia, unspecified Is this a current diagnosis for this admission?: Yes Plan: Will get the iron study stool guaiac study (5) Loose stools Is this a current diagnosis for this admission?: Yes Plan: We will check stool for the C. difficile and also check stool for guaiac study and culture start patient on probiotics - Time Time Spent: 30 to 50 Minutes Medications reviewed and adjusted accordingly: Yes Anticipated discharge: Home Within: Other - Inpatient Certification Medical Necessity: Need For IV Fluids, Need for IV Antibiotics Post Hospital Care: D/C [facility] [employer] Documentation - Plan Summary Plan Summary: See MD orders we will discuss with the daughters
[2018-04-22] MEDS: CEFTRIAXONE SODIUM 1,000 MG in NORMAL SALINE 50 ML IV SCH (17:43)
[2018-04-22] MEDS: LACTOBACILLUS ACIDOPHILUS 250 MG TAB PO SCH (17:43)
[2018-04-22] MEDS ORDERED: MAG HYDROX/AL HYDROX/SIMETH SUSP 30 ML UDCUP PO PRN (18:59)
[2018-04-23 05:11] LABS: ABSOLUTE EOSINOPHILS # (AUTO) 0.1 10^3/uL (0.0-0.6); ABSOLUTE LYMPHOCYTES (AUTO) 1.5 10^3/uL (0.5-4.7); ABSOLUTE MONOCYTES (AUTO) 0.9 10^3/uL (0.1-1.4); ABSOLUTE NEUT (AUTO) 2.4 10^3/uL (1.7-8.2); BASOPHILS % (AUTO) 0.4 % (0-2); EOSINOPHILS % (AUTO) 2.7 % (0-6); HEMATOCRIT 31.9 % (36.0-47.0); HEMOGLOBIN 10.8 g/dL (12.0-15.5); LYMPHOCYTES % (AUTO) 30.5 % (13-45); MEAN CORPUSCULAR HEMOGLOBIN 31.4 pg (27.0-33.4); MEAN CORPUSCULAR HGB CONC 33.8 g/dL (32.0-36.0); MEAN CORPUSCULAR VOLUME 93 fl (80-97); MONOCYTES % (AUTO) 18.9 % (3-13); PLATELET COUNT 186 10^3/uL (150-450); RED BLOOD COUNT 3.44 10^6/uL (3.72-5.28); RED CELL DISTRIBUTION WIDTH 14.4 % (11.5-14.0); SEGMENTED NEUTROPHILS % (AUTO) 47.5 % (42-78); TOTAL CELLS COUNTED % (AUTO) 100 %
[2018-04-23 05:32] LABS: ANION GAP 12 (5-19); BLOOD UREA NITROGEN 17 mg/dL (7-20); CARBON DIOXIDE 21 mmol/L (22-30); CHLORIDE 111 mmol/L (98-107); GLUCOSE 88 mg/dL (75-110); SODIUM 143.5 mmol/L (137-145)
--- NOTE | 2018-04-23 08:53 | PDOC PROGRESS REPORT ---
Subjective Progress Note for:: 04/23/18 Subjective:: Patient is currently doing well patient is describing a lot of gas in the bloating and nausea related to the IBS type of the symptoms so far patient's stool culture and C. difficile was all negative Patient's denied any chest pain denied any shortness of the breath Patient's last colonoscopy was done in 1999 was all stable Discussed with the daughter and the bedside regarding the patient's current condition Reason For Visit: UTI Physical Exam Vital Signs: Temp Pulse Resp BP Pulse Ox 98.3 F 77 18 117/56 L 93 04/23/18 07:24 04/23/18 07:24 04/23/18 07:24 04/23/18 07:24 04/23/18 07:24 Intake & Output 04/22/18 04/23/18 04/24/18 06:59 06:59 06:59 Intake Total 1721 Output Total 100 Balance -100 1721 Weight 53.1 kg 52.4 kg General appearance: PRESENT: no acute distress, well-developed, well-nourished Head exam: PRESENT: atraumatic, normocephalic Eye exam: PRESENT: conjunctiva pink, EOMI, PERRLA. ABSENT: scleral icterus Ear exam: PRESENT: normal external ear exam Mouth exam: PRESENT: moist, tongue midline Neck exam: PRESENT: full ROM. ABSENT: carotid bruit, JVD, lymphadenopathy, thyromegaly Respiratory exam: PRESENT: clear to auscultation shane Cardiovascular exam: PRESENT: RRR. ABSENT: diastolic murmur, rubs, systolic murmur Pulses: PRESENT: normal dorsalis pedis pul, +2 pedal pulses bilateral Vascular exam: PRESENT: normal capillary refill GI/Abdominal exam: PRESENT: normal bowel sounds, soft. ABSENT: distended, guarding, mass, organolmegaly, rebound, tenderness Rectal exam: PRESENT: deferred Extremities exam: ABSENT: pedal edema Musculoskeletal exam: PRESENT: ambulatory Neurological exam: PRESENT: alert, awake, oriented to person, oriented to place , oriented to time, oriented to situation, CN II-XII grossly intact. ABSENT: motor sensory deficit Psychiatric exam: PRESENT: appropriate affect, normal mood. ABSENT: homicidal ideation, suicidal ideation Skin exam: PRESENT: dry, intact, warm. ABSENT: cyanosis, rash Results Laboratory Results: 04/23/18 04:37 04/23/18 04:37 04/22/18 04/22/18 04/22/18 09:40 09:40 21:30 WBC RBC Hgb Hct MCV MCH MCHC RDW Plt Count Seg Neutrophils % Lymphocytes % Monocytes % Eosinophils % Basophils % Absolute Neutrophils Absolute Lymphocytes Absolute Monocytes Absolute Eosinophils Absolute Basophils Retic Count (auto) 1.62 Absolute Retic 0.053 Sodium Potassium Chloride Carbon Dioxide Anion Gap BUN Creatinine Est GFR ( Amer) Est GFR (Non-Af Amer) Glucose Calcium Iron 30.4 L TIBC 224 L % Saturation 14 Ferritin 92.00 Vitamin B12 > 1000.0 H Folate 18.30 Stool Occult Blood NEGATIVE 04/23/18 04/23/18 04:37 04:37 WBC 5.0 RBC 3.44 L Hgb 10.8 L Hct 31.9 L MCV 93 MCH 31.4 MCHC 33.8 RDW 14.4 H Plt Count 186 Seg Neutrophils % 47.5 Lymphocytes % 30.5 Monocytes % 18.9 H Eosinophils % 2.7 Basophils % 0.4 Absolute Neutrophils 2.4 Absolute Lymphocytes 1.5 Absolute Monocytes 0.9 Absolute Eosinophils 0.1 Absolute Basophils 0.0 Retic Count (auto) Absolute Retic Sodium 143.5 Potassium 4.0 Chloride 111 H Carbon Dioxide 21 L Anion Gap 12 BUN 17 Creatinine 0.91 Est GFR ( Amer) > 60 Est GFR (Non-Af Amer) 58 L Glucose 88 Calcium 9.0 Iron TIBC % Saturation Ferritin Vitamin B12 Folate Stool Occult Blood Impressions: Chest X-Ray 04/21/18 12:45 IMPRESSION: No acute disease. Assessment & Plan - Diagnosis (1) UTI (urinary tract infection) Qualifiers: Urinary tract infection type: acute cystitis Hematuria presence: with hematuria Qualified Code(s): N30.01 - Acute cystitis with hematuria Is this a current diagnosis for this admission?: Yes Plan: Continues to IV antibiotic will wait for the culture and sensitivity (2) Weakness Is this a current diagnosis for this admission?: Yes Plan: Will get the physical therapy evaluations (3) Chronic back pain Qualifiers: Back pain location: low back pain Is this a current diagnosis for this admission?: Yes (4) Anemia Qualifiers: Anemia type: unspecified type Qualified Code(s): D64.9 - Anemia, unspecified Is this a current diagnosis for this admission?: Yes Plan: Will get the iron study stool guaiac study (5) Loose stools Is this a current diagnosis for this admission?: Yes Plan: Patient's stool culture and C. difficile is negative most likely IBS symptoms discussed with the patient and the daughter to increase more fibers follow outpatients GI - Time Time Spent with patient: 15-24 minutes Medications reviewed and adjusted accordingly: Yes Anticipated discharge: Home Within: within 24 hours - Inpatient Certification Medical Necessity: Need Close Monitoring Due to Risk of Patient Decompensation Post Hospital Care: D/C [facility] Chief Documentation - Plan Summary Plan Summary: Continues to current medications
[2018-04-23] MEDS: ENOXAPARIN SODIUM INJ 40 MG/0.4 ML DISP.SYRIN SUBCUT SCH (10:17)
[2018-04-23] MEDS: LACTOBACILLUS ACIDOPHILUS 250 MG TAB PO SCH ×2 (10:17→17:00)
--- NOTE | 2018-04-23 10:20 | Physician Advisory Note ---
Physician Advisor ProgressNote .: [facility] I have [facility] medical [facility] for this patient. Physician Advisor Statement: 88yo w/underlying anemia, HTN, chronic LBPain, in hospital due to weeks of weakness/fatigue, nausea, decreased appetite, diarrhea. Had recent dilation of urethral stricture, after multiple UTIs, w/finding of mass. U/A (+) for UTI again, given IV ROcephin. After 1MN in hospital, attending noted checking for C.diff, hemoccult, stool cx , Starting probiotics, giving IVF & IV abx, awaiting ur cx results, ordering PT eval. Clearly still concerned about pt. Appropriate to change to Inpatient status at that point, 8/6 PM. Please consider documentin. most likely type of anemia 2. any reasons pt continues to need to be in hospital tonight, s/p PT eval & ur cx sensitivities now available - or can pt be d/c'd home today? Thanks! CK
--- NOTE | 2018-04-23 11:18 | RADIOLOGY REPORT (SQ) ---
EXAM DESCRIPTION: CT ABD/PELVIS NO ORAL OR IV COMPLETED DATE/TIME: 04/23/2018 10:47 am REASON FOR STUDY: abd bloating/recuurent uti N39.0 URINARY TRACT INFECTION, SITE NOT SPECIFIED D50 .8 OTHER IRON DEFICIENCY ANEMIAS R10.9 UNSPECIFIED ABDOMINAL PAIN COMPARISON: 11/14/2017. TECHNIQUE: CT scan of the abdomen and pelvis performed without intravenous or oral contrast. Images reviewed with lung, soft tissue, and bone windows. Reconstructed coronal and sagittal MPR images revi ewed. All images stored on PACS. All CT scanners at this facility use dose modulation, iterative reconstruction, and/or weight based d osing when appropriate to reduce radiation dose to as low as reasonably achievable (ALARA). [facility]: Dose Right [facility]: CareDose [facility]: Dose Right [facility]: Teradose 4D [facility]: Smart NeuroTronik RADIATION DOSE: CT Rad equipment meets quality standard of care and radiation dose reduction techniq ues were employed. CTDIvol: 6.9 mGy. DLP: 347 mGy-cm.mGy. LIMITATIONS: Motion. FINDINGS: LOWER CHEST: Cardiomegaly. Patulous distal esophagus. NON-CONTRASTED LIVER, SPLEEN, ADRENALS: Evaluation limited by lack of IV contrast. No identified sign ificant masses. PANCREAS: No masses. No peripancreatic inflammatory changes. GALLBLADDER: Surgically absent. RIGHT KIDNEY AND URETER: No suspicious masses. Assessment limited by lack of IV contrast. No signif icant calcifications. No hydronephrosis or hydroureter. LEFT KIDNEY AND URETER: No suspicious masses. Assessment limited by lack of IV contrast. No signifi cant calcifications. No hydronephrosis or hydroureter. AORTA AND RETROPERITONEUM: No aneurysm. No retroperitoneal masses or adenopathy. BOWEL AND PERITONEAL CAVITY: Sigmoid diverticulosis. No obvious masses or inflammatory changes. No f ree fluid. APPENDIX: Not visualized. PELVIS, BLADDER, AND ABDOMINAL WALL:No abnormal masses. No free fluid. Bladder normal. BONES: No acute findings. OTHER: No other significant finding. IMPRESSION: Sigmoid diverticulosis. No acute findings. COMMENT: Quality ID # [id number]: Final reports with documentation of one or more dose reduction techniques (e.g., Automated exposure control, adjustment of the mA and/or kV according to patient size, use of iterative reconstruction technique) TECHNICAL DOCUMENTATION: JOB ID: [id number] [id number] All Rights Reserved Reading location - IP/workstation name: [id number]
[2018-04-23] MEDS: CEFTRIAXONE SODIUM 1,000 MG in NORMAL SALINE 50 ML IV SCH (17:00)
[2018-04-24 06:55] LABS: ANION GAP 10 (5-19); BLOOD UREA NITROGEN 17 mg/dL (7-20); CARBON DIOXIDE 22 mmol/L (22-30); CHLORIDE 111 mmol/L (98-107); GLUCOSE 87 mg/dL (75-110); POTASSIUM 4.1 mmol/L (3.6-5.0); SODIUM 142.7 mmol/L (137-145)
[2018-04-24] MEDS: ENOXAPARIN SODIUM INJ 40 MG/0.4 ML DISP.SYRIN SUBCUT SCH (10:26)
[2018-04-24] MEDS: LACTOBACILLUS ACIDOPHILUS 250 MG TAB PO SCH (10:28)
[2018-04-24 11:35] VITALS: BP 106/50
--- NOTE | 2018-04-24 17:23 | PDOC DISCHARGE SUMMARY ---
General - Admit/Disc Date/PCP Admission Date/Primary Care Provider: 04/23/18 12:09 EVELYN MINER MD Discharge Date: 04/24/18 - Discharge Diagnosis (1) UTI (urinary tract infection) Is this a current diagnosis for this admission?: Yes Summary: Patient received IV Rocephin and discharged with the Keflex (2) Weakness Is this a current diagnosis for this admission?: Yes Summary: Ordering physical therapy (3) Chronic back pain Is this a current diagnosis for this admission?: Yes Summary: Patient seen by the pain management Dr. Myrick (4) Anemia Is this a current diagnosis for this admission?: Yes Summary: Currently all stable (5) Loose stools Is this a current diagnosis for this admission?: Yes Summary: Most likely IBS CT abdomen and pelvis is all stable some mild esophageal tortious and patient's stool culture is all negative Follow-up outpatients GI - Additional Information Discharge Diet: Regular Discharge Activity: Activity As Tolerated Prescriptions: Cephalexin Monohydrate [Keflex 500 mg Capsule] 500 mg PO BID #10 capsule Omeprazole 20 mg PO DAILY #30 tablet. Home Medications: Acetaminophen [Tylenol Arthritis 650 mg Tablet] 650 mg PO DAILY 04/22/18 Cephalexin Monohydrate [Keflex 500 mg Capsule] 500 mg PO BID #10 capsule Omeprazole 20 mg PO DAILY #30 tablet. 04/24/18 History of Present Illness History of Present Illness: UBALDO FELIX is a 88 year old female This is a 88-year-old female with the significant history of the chronic urinary tract infections with a recently have a urethroscope was done and a biopsy was done which is benign and also a history of the chronic Back pain and currently see a pain management history of the anemia and other multiple comorbidity came to the emergency department because complaining of some nausea and weakness any urinary symptoms According to the patient since after the procedures patient is not eating or drinking well patients lose more weight patient also have a loose stool Patient's denied any abdominal cramps denied any pain or any fever or chills In the emergency department patients found anemic and patient also have a urinary tract infection and started on the Rocephin When I saw the patient on the floor patient's denied any chest pain denied any shortness of breath Since then any nausea no vomiting Patient have a very extensive evaluation done by the urology review the record with service the patient benign Hospital Course Hospital Course: This is a 80-year-old female is with a significant history of the recurrent urinary tract infections history of the chronic pain syndromes hypertension and recently had a urethroscope was done with negative for any malignancy for the bladder mass came to the emergency department for the weakness not feeling well diagnosed with a urinary tract infectionsAnd start the patient on IV Rocephin Patient also concerns about the IBS type symptoms underwent for the CT abdomen and pelvis which did not find any acute except some abnormality of the esophagus but no other symptoms and also patient have a stool C. difficile and culture was all negative Patient's otherwise doing well physical therapy walk with the walker Since p.o. intake is good The extensor discussed with the patient and the daughter and the patient's daughter want to go to the rehab facility patient's discharge with home and home health and physical therapy Discussed with the daughter about the possible what we can help for the PCS service while patients do not want to go to the rehab facility we discussed about the fall precautions and follow outpatients GI Physical Exam Vital Signs: Temp Pulse Resp BP Pulse Ox 98.0 F 77 17 106/50 L 93 04/24/18 11:32 04/24/18 11:32 04/24/18 11:32 04/24/18 11:32 04/24/18 11:32 Intake & Output 04/23/18 04/24/18 04/25/18 06:59 06:59 06:59 Intake Total 487 Balance 487 Weight 52.8 kg General appearance: PRESENT: no acute distress, well-developed, well-nourished Head exam: PRESENT: atraumatic, normocephalic Eye exam: PRESENT: conjunctiva pink, EOMI, PERRLA. ABSENT: scleral icterus Ear exam: PRESENT: normal external ear exam Mouth exam: PRESENT: moist, tongue midline Neck exam: PRESENT: full ROM. ABSENT: carotid bruit, JVD, lymphadenopathy, thyromegaly Respiratory exam: PRESENT: clear to auscultation shane Cardiovascular exam: PRESENT: RRR. ABSENT: diastolic murmur, rubs, systolic murmur Pulses: PRESENT: normal dorsalis pedis pul, +2 pedal pulses bilateral Vascular exam: PRESENT: normal capillary refill GI/Abdominal exam: PRESENT: normal bowel sounds, soft. ABSENT: distended, guarding, mass, organolmegaly, rebound, tenderness Rectal exam: PRESENT: deferred Extremities exam: ABSENT: pedal edema Musculoskeletal exam: PRESENT: ambulatory Neurological exam: PRESENT: alert, awake, oriented to person, oriented to place , oriented to time, oriented to situation, CN II-XII grossly intact. ABSENT: motor sensory deficit Psychiatric exam: PRESENT: appropriate affect, normal mood. ABSENT: homicidal ideation, suicidal ideation Skin exam: PRESENT: dry, intact, warm. ABSENT: cyanosis, rash Results Laboratory Results: 04/24/18 05:53 04/24/18 05:53 Sodium 142.7 Potassium 4.1 Chloride 111 H Carbon Dioxide 22 Anion Gap 10 BUN 17 Creatinine 0.82 Est GFR ( Amer) > 60 Est GFR (Non-Af Amer) > 60 Glucose 87 Calcium 9.0 Impressions: Chest X-Ray 04/21/18 12:45 IMPRESSION: No acute disease. Abdomen/Pelvis CT 04/23/18 00:00 IMPRESSION: Sigmoid diverticulosis. No acute findings. Qualifiers - * PATIENT BEING DISCHARGED WITH ANY OF THE FOLLOWING DIAGNOSIS: No VTE patient discharged on overlapping Therapy?: Yes Plan Time Spent: Greater than 30 Minutes - Will currently hold the blood pressure medications while running stable without medicines reevaluate in 1 week in the office currently [facility] pain start the patient on a PPI and following a 1 week in office
== END 2018-04-24 12:45 | disposition home health service (06) | DRG 690 ==
LOC: ER 12:25 → OBSVTOIN 17:31 → EH 17:31 → INTOOBSV 17:31 → 5 19:20 → OBSVTOIN 04-23 12:09
PROVIDERS: ADMIT Family Medicine; ATTEND Family Medicine
DX: N30.01 Acute cystitis with hematuria (principal); M54.5 Low back pain; D64.9 Anemia, unspecified; R53.1 Weakness; K58.0 Irritable bowel syndrome with diarrhea; G89.4 Chronic pain syndrome; I10 Essential (primary) hypertension; K21.9 Gastro-esophageal reflux disease without esophagitis; Z79.899 Other long term (current) drug therapy; Z90.49 Acquired absence of other specified parts of digestive tract; Z90.710 Acquired absence of both cervix and uterus; Z88.3 Allergy status to other anti-infective agents; Z88.2 Allergy status to sulfonamides
CPT/HCPCS: 36415; 71045; 74176; 80048; 80053; 81001; 82272; 82550; 82553; 82607; 82728; 82746; 83540; 83550; 83690; 84484; 85025; 85045; 87040; 87045; 87086; 87088; 87186; 87205; 87493; 93005; 93010; 96361; 96374; 99285; G0378; G8978-GP; G8979-GP; J0696; J1650; J2405; J3490; J7030; S0119

== ENCOUNTER 2018-05-10 17:32 | Inpatient (IN) | payer MEDICARE, OTHER ==
[2018-05-10] MEDS ORDERED: NORMAL SALINE 1000 ML 1,000 ML IV ONE (18:21)
--- NOTE | 2018-05-10 18:22 | ER Document Report ---
ED Medical Screen (RME) - General Chief Complaint: Shortness Of Breath Stated Complaint: SHORTNESS OF BREATH Time Seen by Provider: 05/10/18 18:18 TRAVEL OUTSIDE OF THE [place] IN LAST 30 DAYS: No - Related Data Allergies/Adverse Reactions: doxycycline Allergy (Severe, Verified 05/10/18 18:18) GI upset nitrofurantoin [From Macrobid] Allergy (Severe, Verified 05/10/18 18:18) headaches, nausea celecoxib [From Celebrex] Allergy (Verified 05/10/18 18:18) ciprofloxacin [From Cipro] Allergy (Verified 05/10/18 18:18) oxycodone Allergy (Verified 05/10/18 18:18) sulfamethoxazole [From Bactrim] Allergy (Verified 05/10/18 18:18) trimethoprim [From Bactrim] Allergy (Verified 05/10/18 18:18) Past Medical History - General Information source: Patient, Relative - Past Medical History Cardiac Medical History: Reports: Hx Hypertension Denies: Hx Coronary Artery Disease, Hx Heart Attack Pulmonary Medical History: Reports: Hx Pneumonia - 2014 Denies: Hx Asthma, Hx Bronchitis, Hx COPD Neurological Medical History: Denies: Hx Cerebrovascular Accident, Hx Seizures Renal/ Medical History: Denies: Hx Peritoneal Dialysis GI Medical History: Reports: Hx Gastroesophageal Reflux Disease Musculoskeltal Medical History: Past Surgical History: Reports: Hx Abdominal Surgery - zipper d/c, Hx Appendectomy, Hx Cholecystectomy, Hx Hysterectomy, Hx Orthopedic Surgery - shane feet - Immunizations Hx Diphtheria, Pertussis, Tetanus Vaccination: Yes - 09/17/2007 History of Influenza Vaccine for 06/2017 - 11/2017 Season: Unknown Physical Exam - Vital signs Vitals: Temp Pulse Resp BP Pulse Ox 100.1 F 93 20 144/66 H 92 05/10/18 17:43 05/10/18 17:43 05/10/18 17:43 05/10/18 17:43 05/10/18 17:43 Course - Re-evaluation Re-evalutation: 05/10/18 18:21 This 88-year-old female represents for evaluation of generalized fatigue as well as nausea and recurrent vomiting. She notes that she has had terrible fatigue since leaving the hospital prior. On examination she does have a cough as well as diffuse abdominal pain and tenderness without any appreciable rebound or guarding. Given the constellation of symptoms with this may represent underlying infectious source such as urine, chest, abdomen. We will obtain cultures as well as brought analysis. We will obtain chest x-ray as well as a CT for possible colitis or perforated diverticula. Patient to be evaluated in the main emergency department. - Vital Signs Vital signs: Temp Pulse Resp BP Pulse Ox 100.1 F 93 20 144/66 H 92 05/10/18 17:43 05/10/18 17:43 05/10/18 17:43 05/10/18 17:43 05/10/18 17:43 Doctor's Discharge - Discharge Referrals: EVELYN MINER MD [Primary Care Provider] - Follow up as needed
--- NOTE | 2018-05-10 19:02 | RADIOLOGY REPORT (SQ) ---
EXAM DESCRIPTION: CHEST 2 VIEWS COMPLETED DATE/TIME: 05/10/2018 6:45 pm REASON FOR STUDY: cough COMPARISON: None. EXAM PARAMETERS: NUMBER OF VIEWS: two views TECHNIQUE: Digital Frontal and Lateral radiographic views of the chest acquired. RADIATION DOSE: NA LIMITATIONS: none FINDINGS: LUNGS AND PLEURA: Ill-defined opacification in the left base. Minimal left pleural effusi on. MEDIASTINUM AND HILAR STRUCTURES: No masses or contour abnormalities. HEART AND VASCULAR STRUCTURES: Heart normal size. No evidence for failure. BONES: No acute findings. HARDWARE: None in the chest. OTHER: No other significant finding. IMPRESSION: Cannot exclude limited left lower lobe pneumonia. Minimal left pleural effusion. TECHNICAL DOCUMENTATION: JOB ID: [id number] [employer]- All Rights Reserved Reading location - IP/workstation name: [email or web address]
[2018-05-10 19:23] LABS: HEMATOCRIT 31.6 % (36.0-47.0); HEMOGLOBIN 10.8 g/dL (12.0-15.5); MEAN CORPUSCULAR HEMOGLOBIN 31.5 pg (27.0-33.4); MEAN CORPUSCULAR HGB CONC 34.3 g/dL (32.0-36.0); MEAN CORPUSCULAR VOLUME 92 fl (80-97); PLATELET COUNT 165 10^3/uL (150-450); RED BLOOD COUNT 3.43 10^6/uL (3.72-5.28); RED CELL DISTRIBUTION WIDTH 14.8 % (11.5-14.0); WHITE BLOOD COUNT 12.6 10^3/uL (4.0-10.5)
[2018-05-10 19:41] LABS: ALANINE AMINOTRANSFERASE 27 U/L (9-52); ALBUMIN 3.9 g/dL (3.5-5.0); ALKALINE PHOSPHATASE 77 U/L (38-126); ANION GAP 13 (5-19); ASPARTATE AMINO TRANSFERASE 31 U/L (14-36); BILIRUBIN,DIRECT 0.3 mg/dL (0.0-0.4); BLOOD UREA NITROGEN 19 mg/dL (7-20); CALCIUM 9.4 mg/dL (8.4-10.2); CARBON DIOXIDE 21 mmol/L (22-30); CHLORIDE 101 mmol/L (98-107); GLUCOSE 138 mg/dL (75-110); LIPASE 82.8 U/L (23-300); POTASSIUM 3.8 mmol/L (3.6-5.0); SODIUM 134.7 mmol/L (137-145); TOTAL PROTEIN 6.7 g/dL (6.3-8.2)
[2018-05-10 19:42] LABS: ABSOLUTE MONOCYTES # (MANUAL) 2.8 10^3/uL (0.1-1.4); ABSOLUTE NEUTROPHILS# (MANUAL) 8.8 10^3/uL (1.7-8.2); BASOPHILS % (MANUAL) 0 % (0-2); EOSINOPHILS % (MANUAL) 0 % (0-6); LYMPHOCYTES % (MANUAL) 8 % (13-45); MONOCYTES % (MANUAL) 22 % (3-13); SEGMENTED NEUTROPHILS % (MAN) 70 % (42-78); TOTAL CELLS COUNTED 100
[2018-05-10 19:43] LABS: ANISOCYTOSIS SLIGHT; PLATELET COMMENT ADEQUATE; TOXIC GRANULATION SLIGHT
[2018-05-10] MEDS ORDERED: CEFTRIAXONE INJ 1000 MG VIAL IV ONE (20:30)
[2018-05-10] MEDS ORDERED: AZITHROMYCIN 250 MG TABLET PO ONE (20:30)
--- NOTE | 2018-05-10 20:33 | ER Document Report ---
ED General - General Chief Complaint: Shortness Of Breath Stated Complaint: SHORTNESS OF BREATH Time Seen by Provider: 05/10/18 18:18 Notes: Patient is an 88 year old female with a past medical history of dementia, recurrent urinary tract infections, hypertension, who presents with family due to concerns of fever, weakness, cough that have been progressively worsening over the past 2-3 days. She was apparently noted to have a fever at home obtained by the nurse. Patient was encouraged by her physician Dr. Magaña to seek care in the emergency department. The patient was recently hospitalized for urinary tract infection. She has been on multiple courses of antibiotics related to recurrent UTIs in the past 2 months. She states that her cough is a dry, nonproductive cough. Symptoms have overall been unchanged since onset. Nothing improves or worsens her symptoms. Family reports their main concern is that the patient is too weak to hardly ambulate and is normally up and around the house without difficulty. The patient is apparently also had diarrhea for the past 2 days and had several episodes of nonbilious vomiting today. TRAVEL OUTSIDE OF THE [place] IN LAST 30 DAYS: No - Related Data Allergies/Adverse Reactions: doxycycline Allergy (Severe, Verified 05/10/18 18:18) GI upset nitrofurantoin [From Macrobid] Allergy (Severe, Verified 05/10/18 18:18) headaches, nausea celecoxib [From Celebrex] Allergy (Verified 05/10/18 18:18) ciprofloxacin [From Cipro] Allergy (Verified 05/10/18 18:18) oxycodone Allergy (Verified 05/10/18 18:18) sulfamethoxazole [From Bactrim] Allergy (Verified 05/10/18 18:18) trimethoprim [From Bactrim] Allergy (Verified 05/10/18 18:18) Past Medical History - General Information source: Patient, Relative - Social History Smoking Status: Never Smoker Frequency of alcohol use: None Drug Abuse: None Lives with: Family Family History: Reviewed & Not Pertinent Patient has suicidal ideation: No Patient has homicidal ideation: No - Past Medical History Cardiac Medical History: Reports: Hx Hypertension Denies: Hx Coronary Artery Disease, Hx Heart Attack Pulmonary Medical History: Reports: Hx Pneumonia - 2015 Denies: Hx Asthma, Hx Bronchitis, Hx COPD Neurological Medical History: Denies: Hx Cerebrovascular Accident, Hx Seizures Renal/ Medical History: Denies: Hx Peritoneal Dialysis GI Medical History: Reports: Hx Gastroesophageal Reflux Disease Musculoskeletal Medical History: Past Surgical History: Reports: Hx Abdominal Surgery - zipper d/c, Hx Appendectomy, Hx Cholecystectomy, Hx Hysterectomy, Hx Orthopedic Surgery - shane feet - Immunizations Hx Diphtheria, Pertussis, Tetanus Vaccination: Yes - 09/17/2007 Review of Systems - Review of Systems Notes: Constitutional: Positive for fever. HENT: Negative for sore throat. Eyes: Negative for visual changes. Cardiovascular: Negative for chest pain. Respiratory: Positive for shortness of breath and cough Gastrointestinal: Positive for abdominal cramping, vomiting and diarrhea Genitourinary: Negative for dysuria. Musculoskeletal: Negative for back pain. Skin: Negative for rash. Neurological: Negative for headaches, weakness or numbness. 10 point ROS negative except as marked above and in HPI. Physical Exam - Vital signs Vitals: Temp Pulse Resp BP Pulse Ox 100.1 F 93 20 144/66 H 92 05/10/18 17:43 05/10/18 17:43 05/10/18 17:43 05/10/18 17:43 05/10/18 17:43 Interpretation: Normal Notes: PHYSICAL EXAMINATION: GENERAL: Elderly, in no distress. HEAD: Atraumatic, normocephalic. EYES: Pupils equal round and reactive to light, extraocular movements intact, sclera anicteric, conjunctiva are normal. ENT: nares patent, oropharynx clear without exudates. Moderately dry mucous membranes. NECK: Normal range of motion, supple without lymphadenopathy LUNGS: Breath sounds clear to auscultation bilaterally and equal. No wheezes rales or rhonchi. HEART: Regular rate and rhythm without murmurs ABDOMEN: Soft, mild right upper quadrant abdominal tenderness but no other areas of localized tenderness, normoactive bowel sounds. No guarding, no rebound. No masses appreciated. EXTREMITIES: Normal range of motion, no pitting or edema. No cyanosis. NEUROLOGICAL: No focal neurological deficits. Moves all extremities spontaneously and on command. PSYCH: Normal mood, normal affect. SKIN: Warm, Dry, normal turgor, no rashes or lesions noted. Course - Re-evaluation Re-evalutation: 05/10/18 20:30 Patient presents with shortness of breath, cough, nausea, vomiting, diarrhea, fever to 101.9F patient is found to have a left lower lobe pneumonia on chest x -ray consistent with her clinical presentation. Laboratories do show mild leukocytosis, labs otherwise benign. Urinalysis is pending. C. difficile colitis would be on the differential as patient has had repeated courses of antibiotics both as inpatient and outpatient for urinary tract infections. A C. difficile study has been ordered. I do not believe the patient requires an emergent CT scan of her abdomen pelvis as she just had one less than 2 weeks ago for similar symptoms. She has no focal abdominal tenderness on my examination with the exception of mild tenderness of right upper quadrant. She is status post cholecystectomy do not suspect any alternative life-threatening abdominal pathology at this point. I have started the patient on ceftriaxone and azithromycin. IV fluids will be administered. Will discuss with Dr. Magaña for admission. - Vital Signs Vital signs: Temp Pulse Resp BP Pulse Ox 97.7 F 77 20 114/50 L 96 05/10/18 22:56 05/10/18 22:56 05/10/18 22:56 05/10/18 22:56 05/10/18 22:56 - Laboratory Result Diagrams: 05/10/18 18:50 05/10/18 18:50 Laboratory results interpreted by me: 05/10/18 05/10/18 18:50 18:50 WBC 12.6 H RBC 3.43 L Hgb 10.8 L Hct 31.6 L RDW 14.8 H Lymphocytes % (Manual) 8 L Monocytes % (Manual) 22 H Abs Neuts (Manual) 8.8 H Abs Monocytes (Manual) 2.8 H Sodium 134.7 L Carbon Dioxide 21 L Est GFR (Non-Af Amer) 59 L Glucose 138 H - Diagnostic Test Radiology reviewed: Image reviewed, Reports reviewed Radiology results interpreted by me: 05/10/18 20:32 Chest x-ray: Left lower lobe pneumonia Discharge - Discharge Clinical Impression: Nausea vomiting and diarrhea Left lower lobe pneumonia Qualifiers: Pneumonia type: due to unspecified organism Qualified Code(s): J18.1 - Lobar pneumonia, unspecified organism Sepsis Qualifiers: Sepsis type: sepsis due to unspecified organism Qualified Code(s): A41.9 - Sepsis, unspecified organism Condition: Fair Disposition: ADMITTED INPATIENT Admitting Provider: [facility] Unit Admitted: Telemetry
[2018-05-10] MEDS ORDERED: NORMAL SALINE 1000 ML 1,000 ML IV PRN (20:42)
[2018-05-10] MEDS ORDERED: MAG HYDROX/AL HYDROX/SIMETH SUSP 30 ML UDCUP PO PRN (20:42)
[2018-05-10] MEDS ORDERED: ONDANSETRON HCL INJ/PF 4 MG/2 ML SDV IV PRN (20:42)
[2018-05-10] MEDS ORDERED: IPRATROPIUM/ALBUTEROL 0.5-2.5 MG/3 ML AMPUL NEB PRN (20:51)
[2018-05-10] MEDS: ACETAMINOPHEN 325 MG TABLET PO PRN (21:59)
[2018-05-10 22:14] LABS: APPEARANCE,URINE SLIGHTLY-CLOUDY; BILIRUBIN,URINE NEGATIVE (NEGATIVE); COLOR,URINE YELLOW; GLUCOSE, URINE NEGATIVE (NEGATIVE); KETONES,URINE TRACE mg/dL (NEGATIVE); LEUKOCYTE ESTERASE,URINE LARGE (NEGATIVE); NITRITE,URINE POSITIVE (NEGATIVE); PROTEIN,URINE 100 mg/dL (NEGATIVE); URINE SPECIFIC GRAVITY 1.012; UROBILINOGEN,URINE NEGATIVE mg/dL (<2.0)
[2018-05-11] MEDS: ACETAMINOPHEN 325 MG TABLET PO PRN ×2 (03:30→15:39)
[2018-05-11] MEDS: LANSOPRAZOLE 30 MG TAB.RAP.DR PO SCH (06:33)
[2018-05-11 07:57] LABS: HEMOGLOBIN 9.8 g/dL (12.0-15.5); MEAN CORPUSCULAR HEMOGLOBIN 32.5 pg (27.0-33.4); MEAN CORPUSCULAR HGB CONC 35.1 g/dL (32.0-36.0); MEAN CORPUSCULAR VOLUME 92 fl (80-97); PLATELET COUNT 130 10^3/uL (150-450); RED BLOOD COUNT 3.03 10^6/uL (3.72-5.28); WHITE BLOOD COUNT 9.6 10^3/uL (4.0-10.5)
[2018-05-11 08:04] LABS: ALANINE AMINOTRANSFERASE 22 U/L (9-52); ALBUMIN 3.3 g/dL (3.5-5.0); ALKALINE PHOSPHATASE 65 U/L (38-126); ANION GAP 11 (5-19); ASPARTATE AMINO TRANSFERASE 22 U/L (14-36); BILIRUBIN,DIRECT 0.3 mg/dL (0.0-0.4); BILIRUBIN,TOTAL 0.6 mg/dL (0.2-1.3); BLOOD UREA NITROGEN 17 mg/dL (7-20); CALCIUM 8.8 mg/dL (8.4-10.2); CARBON DIOXIDE 22 mmol/L (22-30); CHLORIDE 106 mmol/L (98-107); GLUCOSE 86 mg/dL (75-110); POTASSIUM 3.6 mmol/L (3.6-5.0); SODIUM 139.2 mmol/L (137-145); TOTAL PROTEIN 5.8 g/dL (6.3-8.2)
[2018-05-11 09:06] LABS: ABSOLUTE LYMPHOCYTES# (MANUAL) 1.5 10^3/uL (0.5-4.7); ABSOLUTE MONOCYTES # (MANUAL) 1.5 10^3/uL (0.1-1.4); ABSOLUTE NEUTROPHILS# (MANUAL) 6.4 10^3/uL (1.7-8.2); ANISOCYTOSIS SLIGHT; BASOPHILS % (MANUAL) 0 % (0-2); EOSINOPHILS % (MANUAL) 1 % (0-6); LYMPHOCYTES % (MANUAL) 16 % (13-45); MONOCYTES % (MANUAL) 16 % (3-13); POLYCHROMASIA SLIGHT; SEGMENTED NEUTROPHILS % (MAN) 67 % (42-78); TOTAL CELLS COUNTED 100
[2018-05-11 09:07] LABS: PLATELET COMMENT DECREASED; PLATELET GIANT PRESENT; PLATELET LARGE PRESENT
--- NOTE | 2018-05-11 09:22 | PDOC H&P ---
History of Present Illness Admission Date/PCP: 05/10/18 20:43 EVELYN MINER MD Patient complains of: Fever and cough History of Present Illness: UBALDO FELIX is a 88 year old female This 88-year-old female with a significant history of urinary tract infections with a recently have a urethroscopy was done recently admitting in the hospital for the UTI and the history of the chronic back pain call the office yesterday' s was complaining of fever not feeling well and directed to the emergency department with the patient was complaining of a cough and congestion for the last 3 days and patients diagnosed with a left-sided possible pneumonia According to the patient's last 3 days will feeling weak unable to eat much and the patient's increasing more cough and congestions and noticed a fever Patient's denied any chest pain denied any shortness of breath In the emergency department patient received Rocephin and Zithromax When I saw the patient is comfortably lying in the bed denied any complaints Patient also have a usable IBS symptoms Currently not noticed any diarrhea but patient was complaining of loose stool yesterday Past Medical History Cardiac Medical History: Reports: Hypertension Denies: Coronary Artery Disease, Myocardial Infarction Pulmonary Medical History: Reports: Pneumonia - 2014 Denies: Asthma, Bronchitis, Chronic Obstructive Pulmonary Disease (COPD) Neurological Medical History: Denies: Seizures GI Medical History: Reports: Gastroesophageal Reflux Disease Musculoskeltal Medical History: Hematology: Reports: Anemia - after pneumonia 2014 Past Surgical History Past Surgical History: Reports: Appendectomy, Cholecystectomy, Hysterectomy, Orthopedic Surgery - shane feet Social History Lives with: Family Smoking Status: Never Smoker Frequency of Alcohol Use: None Hx Recreational Drug Use: No Hx Prescription Drug Abuse: No - Advance Directive Resuscitation Status: Full Code Family History Family History: Reviewed & Not Pertinent Parental Family History Reviewed: Yes Children Family History Reviewed: Yes Sibling(s) Family History Reviewed.: Yes Medication/Allergy Home Medications: Amlodipine Besylate [Norvasc 10 mg Tablet] 10 mg PO DAILY 05/10/18 Omeprazole 20 mg PO DAILY 05/10/18 Allergies/Adverse Reactions: doxycycline Allergy (Severe, Verified 05/10/18 18:18) GI upset nitrofurantoin [From Macrobid] Allergy (Severe, Verified 05/10/18 18:18) headaches, nausea celecoxib [From Celebrex] Allergy (Verified 08/24/18 18:18) ciprofloxacin [From Cipro] Allergy (Verified 05/10/18 18:18) oxycodone Allergy (Verified 05/10/18 18:18) sulfamethoxazole [From Bactrim] Allergy (Verified 05/10/18 18:18) trimethoprim [From Bactrim] Allergy (Verified 05/10/18 18:18) Review of Systems Constitutional: PRESENT: anorexia, fatigue, weakness. ABSENT: chills, fever(s) , headache(s), weight gain, weight loss Eyes: ABSENT: visual disturbances Ears: ABSENT: hearing changes Cardiovascular: ABSENT: chest pain, dyspnea on exertion, edema, orthropnea, palpitations Respiratory: PRESENT: cough, sputum. ABSENT: hemoptysis Gastrointestinal: PRESENT: bloating, diarrhea, nausea, vomiting. ABSENT: abdominal pain, constipation, hematemesis, hematochezia Genitourinary: ABSENT: dysuria, hematuria Musculoskeletal: ABSENT: joint swelling Integumentary: ABSENT: rash, wounds Neurological: ABSENT: abnormal gait, abnormal speech, confusion, dizziness, focal weakness, syncope Psychiatric: ABSENT: anxiety, depression, homidical ideation, suicidal ideation Endocrine: ABSENT: cold intolerance, heat intolerance, menstrual abnormalities, polydipsia, polyuria Hematologic/Lymphatic: ABSENT: easy bleeding, easy bruising, lymphadenopathy Physical Exam Vital Signs: Temp Pulse Resp BP Pulse Ox 97.9 F 82 18 113/49 L 94 05/11/18 07:59 05/11/18 07:59 05/11/18 07:59 05/11/18 07:59 05/11/18 07:59 Intake & Output 05/10/18 05/11/18 05/12/18 06:59 06:59 06:59 Intake Total 1000 Balance 1000 Weight 54.9 kg General appearance: PRESENT: no acute distress, well-developed, well-nourished Head exam: PRESENT: atraumatic, normocephalic Eye exam: PRESENT: conjunctiva pink, EOMI, PERRLA. ABSENT: scleral icterus Ear exam: PRESENT: normal external ear exam Mouth exam: PRESENT: moist, tongue midline Neck exam: PRESENT: full ROM. ABSENT: carotid bruit, JVD, lymphadenopathy, thyromegaly Respiratory exam: PRESENT: clear to auscultation shane Cardiovascular exam: PRESENT: RRR. ABSENT: diastolic murmur, rubs, systolic murmur Pulses: PRESENT: normal dorsalis pedis pul, +2 pedal pulses bilateral Vascular exam: PRESENT: normal capillary refill GI/Abdominal exam: PRESENT: normal bowel sounds, soft. ABSENT: distended, guarding, mass, organolmegaly, rebound, tenderness Rectal exam: PRESENT: deferred Extremities exam: ABSENT: pedal edema Musculoskeletal exam: PRESENT: ambulatory Neurological exam: PRESENT: alert, awake, oriented to person, oriented to place , oriented to time, oriented to situation, CN II-XII grossly intact. ABSENT: motor sensory deficit Psychiatric exam: PRESENT: appropriate affect, normal mood. ABSENT: homicidal ideation, suicidal ideation Skin exam: PRESENT: dry, intact, warm. ABSENT: cyanosis, rash Results Laboratory Results: 05/11/18 06:23 05/11/18 06:23 05/10/18 05/10/18 05/11/18 21:05 21:52 06:23 WBC 9.6 RBC 3.03 L Hgb 9.8 L Hct 28.0 L MCV 92 MCH 32.5 MCHC 35.1 RDW 15.0 H Plt Count 130 L Seg Neutrophils % Not Reportable Lymphocytes % Not Reportable Monocytes % Not Reportable Eosinophils % Not Reportable Basophils % Not Reportable Absolute Neutrophils Not Reportable Absolute Lymphocytes Not Reportable Absolute Monocytes Not Reportable Absolute Eosinophils Not Reportable Absolute Basophils Not Reportable Sodium Potassium Chloride Carbon Dioxide Anion Gap BUN Creatinine Est GFR ( Amer) Est GFR (Non-Af Amer) Glucose Lactic Acid 1.0 Calcium Magnesium Total Bilirubin AST ALT Alkaline Phosphatase Total Protein Albumin Urine Color YELLOW Urine Appearance SLIGHTLY-CLOUDY Urine pH 5.0 Ur Specific [place] 1.012 Urine Protein 100 H Urine Glucose (UA) NEGATIVE Urine Ketones TRACE H Urine Blood SMALL H Urine Nitrite POSITIVE H Ur Leukocyte Esterase LARGE H Urine WBC (Auto) 68 Urine RBC (Auto) 7 05/11/18 06:23 WBC RBC Hgb Hct MCV MCH MCHC RDW Plt Count Seg Neutrophils % Lymphocytes % Monocytes % Eosinophils % Basophils % Absolute Neutrophils Absolute Lymphocytes Absolute Monocytes Absolute Eosinophils Absolute Basophils Sodium 139.2 Potassium 3.6 Chloride 106 Carbon Dioxide 22 Anion Gap 11 BUN 17 Creatinine 0.80 Est GFR ( Amer) > 60 Est GFR (Non-Af Amer) > 60 Glucose 86 Lactic Acid Calcium 8.8 Magnesium 2.2 Total Bilirubin 0.6 AST 22 ALT 22 Alkaline Phosphatase 65 Total Protein 5.8 L Albumin 3.3 L Urine Color Urine Appearance Urine pH Ur Specific [place] Urine Protein Urine Glucose (UA) Urine Ketones Urine Blood Urine Nitrite Ur Leukocyte Esterase Urine WBC (Auto) Urine RBC (Auto) Impressions: Chest X-Ray 05/10/18 18:19 IMPRESSION: Cannot exclude limited left lower lobe pneumonia. Minimal left pleural effusion. Assessment & Plan - Diagnosis (1) Left lower lobe pneumonia Qualifiers: Pneumonia type: due to unspecified organism Qualified Code(s): J18.1 - Lobar pneumonia, unspecified organism Is this a current diagnosis for this admission?: Yes Plan: The patient on Rocephin and Zithromax (2) Nausea vomiting and diarrhea Is this a current diagnosis for this admission?: Yes Plan: We will check the stool for C. difficile Continues the PPI Most likely related to the IBS Patient of a CT scan of the abdomen and pelvis was done in 2 weeks back was all stable (3) Chronic back pain Qualifiers: Back pain location: low back pain Is this a current diagnosis for this admission?: Yes (4) UTI (urinary tract infection) Qualifiers: Urinary tract infection type: site unspecified Is this a current diagnosis for this admission?: Yes Plan: Continues recurrent urinary tract infections with recently a urethroscope was done Patient have an appointment to see the urologist on Sunday we will send the urine for the culture (6) Hypertension Qualifiers: Hypertension type: essential hypertension Qualified Code(s): I10 - Essential (primary) hypertension Is this a current diagnosis for this admission?: Yes (7) Irritable bowel syndrome Qualifiers: Irritable bowel syndrome type: with both diarrhea and constipation Qualified Code(s): K58.2 - Mixed irritable bowel syndrome Is this a current diagnosis for this admission?: Yes Plan: Will consider to use of Bentyl - Time Time Spent: 30 to 50 Minutes Medications reviewed and adjusted accordingly: Yes Anticipated discharge: Home Within: Other - Inpatient Certification Based on my medical assessment, after consideration of the patient's comorbidities, presenting symptoms, or acuity I expect that the services needed warrant INPATIENT care.: Yes I certify that my determination is in accordance with my understanding of Medicare's requirements for reasonable and necessary INPATIENT services [42 CFR 412.3e].: Yes Medical Necessity: Need Close Monitoring Due to Risk of Patient Decompensation, Need For IV Fluids, Need for IV Antibiotics Post Hospital Care: D/C Sourcing Manager Documentation - Plan Summary Plan Summary: See other MD orders discussed with the daughter regarding the patient's current conditions
[2018-05-11] MEDS: ENOXAPARIN SODIUM INJ 40 MG/0.4 ML DISP.SYRIN SUBCUT SCH (09:47)
[2018-05-11] MEDS: GUAIFENESIN 600 MG TABLET.SA PO SCH ×2 (09:52→17:07)
[2018-05-11] MEDS: AMLODIPINE BESYLATE 10 MG TABLET PO SCH (09:52)
[2018-05-11] MEDS ORDERED: CEFTRIAXONE 1 GM/D5W RTU 1 GM/50 ML RTUPB IV SCH (10:00)
[2018-05-11] MEDS: CEFTRIAXONE SODIUM 1,000 MG in NORMAL SALINE 50 ML IV SCH (21:46)
[2018-05-11] MEDS: NORMAL SALINE 1000 ML 1,000 ML IV PRN (21:48)
[2018-05-11] MEDS: AZITHROMYCIN 500 MG in DEXTROSE 5%-WATER 250 ML IV SCH (22:35)
[2018-05-12] MEDS: LANSOPRAZOLE 30 MG TAB.RAP.DR PO SCH (06:13)
[2018-05-12 07:02] LABS: HEMATOCRIT 29.7 % (36.0-47.0); HEMOGLOBIN 10.4 g/dL (12.0-15.5); MEAN CORPUSCULAR HEMOGLOBIN 31.7 pg (27.0-33.4); MEAN CORPUSCULAR HGB CONC 34.8 g/dL (32.0-36.0); MEAN CORPUSCULAR VOLUME 91 fl (80-97); PLATELET COUNT 142 10^3/uL (150-450); RED BLOOD COUNT 3.26 10^6/uL (3.72-5.28); RED CELL DISTRIBUTION WIDTH 14.8 % (11.5-14.0); WHITE BLOOD COUNT 10.2 10^3/uL (4.0-10.5)
[2018-05-12 09:00] LABS: ABSOLUTE LYMPHOCYTES# (MANUAL) 1.9 10^3/uL (0.5-4.7); ABSOLUTE MONOCYTES # (MANUAL) 1.2 10^3/uL (0.1-1.4); BASOPHILS % (MANUAL) 0 % (0-2); EOSINOPHILS % (MANUAL) 0 % (0-6); LYMPHOCYTES % (MANUAL) 19 % (13-45); MONOCYTES % (MANUAL) 12 % (3-13); SEGMENTED NEUTROPHILS % (MAN) 69 % (42-78); TOTAL CELLS COUNTED 100
[2018-05-12 09:04] LABS: ANISOCYTOSIS SLIGHT; OVALOCYTES SLIGHT; PLATELET COMMENT DECREASED; POIKILOCYTOSIS 1+; TEAR DROP CELLS SLIGHT
[2018-05-12] MEDS: ENOXAPARIN SODIUM INJ 40 MG/0.4 ML DISP.SYRIN SUBCUT SCH (09:41)
[2018-05-12] MEDS: GUAIFENESIN 600 MG TABLET.SA PO SCH ×2 (09:51→17:34)
[2018-05-12] MEDS: AMLODIPINE BESYLATE 10 MG TABLET PO SCH (12:46)
[2018-05-12] MEDS: CEFTRIAXONE SODIUM 1,000 MG in NORMAL SALINE 50 ML IV SCH (20:08)
[2018-05-12] MEDS: AZITHROMYCIN 500 MG in DEXTROSE 5%-WATER 250 ML IV SCH (21:27)
[2018-05-13] MEDS: LANSOPRAZOLE 30 MG TAB.RAP.DR PO SCH (05:13)
[2018-05-13] MEDS: NORMAL SALINE 1000 ML 1,000 ML IV PRN (05:13)
[2018-05-13 06:37] LABS: HEMATOCRIT 28.1 % (36.0-47.0); HEMOGLOBIN 9.8 g/dL (12.0-15.5); MEAN CORPUSCULAR HEMOGLOBIN 31.5 pg (27.0-33.4); MEAN CORPUSCULAR HGB CONC 34.8 g/dL (32.0-36.0); MEAN CORPUSCULAR VOLUME 90 fl (80-97); PLATELET COUNT 137 10^3/uL (150-450); RED CELL DISTRIBUTION WIDTH 14.6 % (11.5-14.0); WHITE BLOOD COUNT 7.4 10^3/uL (4.0-10.5)
[2018-05-13 07:57] LABS: ABSOLUTE LYMPHOCYTES# (MANUAL) 1.9 10^3/uL (0.5-4.7); ABSOLUTE MONOCYTES # (MANUAL) 0.8 10^3/uL (0.1-1.4); ABSOLUTE NEUTROPHILS# (MANUAL) 4.7 10^3/uL (1.7-8.2); BASOPHILS % (MANUAL) 0 % (0-2); EOSINOPHILS % (MANUAL) 0 % (0-6); LYMPHOCYTES % (MANUAL) 26 % (13-45); MONOCYTES % (MANUAL) 11 % (3-13); SEGMENTED NEUTROPHILS % (MAN) 63 % (42-78); TOTAL CELLS COUNTED 100
[2018-05-13 07:58] LABS: ANISOCYTOSIS SLIGHT; OVALOCYTES 1+; PLATELET COMMENT DECREASED; POIKILOCYTOSIS 1+
[2018-05-13 08:26] LABS: RETICULOCYTE COUNT (AUTO) 1.63 % (0.66-2.85)
[2018-05-13] MEDS ORDERED: MAG HYDROX/AL HYDROX/SIMETH SUSP 30 ML UDCUP PO PRN (08:30)
[2018-05-13] MEDS ORDERED: ONDANSETRON HCL INJ/PF 4 MG/2 ML SDV IV PRN (08:30)
--- NOTE | 2018-05-13 08:50 | PDOC PROGRESS REPORT ---
Subjective Progress Note for:: 05/13/18 Subjective:: Patient is feeling much better Patient's denied any chest pain denied any shortness of the breath Patient denied any abdominal pain Patient's cough is much improved Reason For Visit: FEVER, PNEUMONIA Physical Exam Vital Signs: Temp Pulse Resp BP Pulse Ox 98.8 F 83 16 132/56 H 92 05/13/18 07:20 05/13/18 07:20 05/13/18 07:20 05/13/18 07:20 05/13/18 07:20 Intake & Output 05/12/18 05/13/18 05/14/18 06:59 06:59 06:59 Intake Total 1780 1828 Output Total 750 600 Balance 1030 1228 Weight 55.2 kg 54.1 kg General appearance: PRESENT: no acute distress, well-developed, well-nourished Head exam: PRESENT: atraumatic, normocephalic Eye exam: PRESENT: conjunctiva pink, EOMI, PERRLA. ABSENT: scleral icterus Ear exam: PRESENT: normal external ear exam Mouth exam: PRESENT: moist, tongue midline Neck exam: PRESENT: full ROM. ABSENT: carotid bruit, JVD, lymphadenopathy, thyromegaly Respiratory exam: PRESENT: clear to auscultation shane Cardiovascular exam: PRESENT: RRR. ABSENT: diastolic murmur, rubs, systolic murmur Pulses: PRESENT: normal dorsalis pedis pul, +2 pedal pulses bilateral Vascular exam: PRESENT: normal capillary refill GI/Abdominal exam: PRESENT: normal bowel sounds, soft. ABSENT: distended, guarding, mass, organolmegaly, rebound, tenderness Rectal exam: PRESENT: deferred Musculoskeletal exam: PRESENT: ambulatory Neurological exam: PRESENT: alert, awake, oriented to person, oriented to place , oriented to time, oriented to situation, CN II-XII grossly intact. ABSENT: motor sensory deficit Psychiatric exam: PRESENT: appropriate affect, normal mood. ABSENT: homicidal ideation, suicidal ideation Skin exam: PRESENT: dry, intact, warm. ABSENT: cyanosis, rash Results Laboratory Results: 05/13/18 06:20 05/11/18 06:23 05/12/18 05/13/18 05/13/18 06:04 06:20 06:20 WBC 10.2 7.4 RBC 3.26 L 3.10 L Hgb 10.4 L 9.8 L Hct 29.7 L 28.1 L MCV 91 90 MCH 31.7 31.5 MCHC 34.8 34.8 RDW 14.8 H 14.6 H Plt Count 142 L 137 L Seg Neutrophils % Not Reportable Not Reportable Lymphocytes % Not Reportable Not Reportable Monocytes % Not Reportable Not Reportable Eosinophils % Not Reportable Not Reportable Basophils % Not Reportable Not Reportable Absolute Neutrophils Not Reportable Not Reportable Absolute Lymphocytes Not Reportable Not Reportable Absolute Monocytes Not Reportable Not Reportable Absolute Eosinophils Not Reportable Not Reportable Absolute Basophils Not Reportable Not Reportable Retic Count (auto) Absolute Retic Magnesium 1.9 05/13/18 06:20 WBC RBC Hgb Hct MCV MCH MCHC RDW Plt Count Seg Neutrophils % Lymphocytes % Monocytes % Eosinophils % Basophils % Absolute Neutrophils Absolute Lymphocytes Absolute Monocytes Absolute Eosinophils Absolute Basophils Retic Count (auto) 1.63 Absolute Retic 0.050 Magnesium 05/10/18 21:05 Clean Catch Midstream Urine Culture - Final Pseudomonas Aeruginosa Impressions: Chest X-Ray 05/10/18 18:19 IMPRESSION: Cannot exclude limited left lower lobe pneumonia. Minimal left pleural effusion. Assessment & Plan - Diagnosis (1) Left lower lobe pneumonia Qualifiers: Pneumonia type: due to unspecified organism Qualified Code(s): J18.1 - Lobar pneumonia, unspecified organism Is this a current diagnosis for this admission?: Yes Plan: Currently all resolving will repeat the chest x-ray (2) Nausea vomiting and diarrhea Is this a current diagnosis for this admission?: Yes Plan: We will check the stool for C. difficile Continues the PPI Most likely related to the IBS Patient of a CT scan of the abdomen and pelvis was done in 2 weeks back was all stable (3) Chronic back pain Qualifiers: Back pain location: low back pain Is this a current diagnosis for this admission?: Yes (4) UTI (urinary tract infection) Qualifiers: Urinary tract infection type: site unspecified Is this a current diagnosis for this admission?: Yes Plan: Continues recurrent urinary tract infections with recently a urethroscope was done Patient have an appointment to see the urologist on Sunday we will send the urine for the culture (5) Weakness Is this a current diagnosis for this admission?: Yes Plan: Discussed with the patient's possible rehab placement patient's preferred to go home will talk to the patient's daughter (6) Hypertension Qualifiers: Hypertension type: essential hypertension Qualified Code(s): I10 - Essential (primary) hypertension Is this a current diagnosis for this admission?: Yes (7) Irritable bowel syndrome Qualifiers: Irritable bowel syndrome type: with both diarrhea and constipation Qualified Code(s): K58.2 - Mixed irritable bowel syndrome Is this a current diagnosis for this admission?: Yes Plan: Will consider to use of Bentyl - Time Time Spent with patient: 15-24 minutes Medications reviewed and adjusted accordingly: Yes Anticipated discharge: Other Within: Other - Inpatient Certification Medical Necessity: Need Close Monitoring Due to Risk of Patient Decompensation, Need for IV Antibiotics Post Hospital Care: D/C Project Asst Documentation - Plan Summary Plan Summary: Will repeat the chest x-ray Discussed with the physical therapist suggest a possible rehab if the patient's do not want to go then will set up with the home health and physical therapy
[2018-05-13 09:33] LABS: IRON(TIBC) 10.5 ug/dL (37-170)
[2018-05-13] MEDS: ACETAMINOPHEN 325 MG TABLET PO PRN (09:50)
[2018-05-13] MEDS: GUAIFENESIN 600 MG TABLET.SA PO SCH ×2 (09:51→23:31)
[2018-05-13] MEDS: AMLODIPINE BESYLATE 5 MG TABLET PO SCH (09:51)
--- NOTE | 2018-05-13 09:55 | RADIOLOGY REPORT (SQ) ---
EXAM DESCRIPTION: CHEST 2 VIEWS COMPLETED DATE/TIME: 05/13/2018 9:17 am REASON FOR STUDY: pnemonia COMPARISON: 05/10/2018 EXAM PARAMETERS: NUMBER OF VIEWS: two views TECHNIQUE: Digital Frontal and Lateral radiographic views of the chest acquired. RADIATION DOSE: NA LIMITATIONS: none FINDINGS: LUNGS AND PLEURA: Findings of COPD suggested. Small bilateral pleural effusions, slightl y increased in size since the prior study. Slight linear subsegmental densities at the left lung bas e may represent atelectasis/infiltrate. No pneumothorax. MEDIASTINUM AND HILAR STRUCTURES: No masses or contour abnormalities. HEART AND VASCULAR STRUCTURES: Heart normal size. No evidence for failure. BONES: No acute findings. HARDWARE: None in the chest. OTHER: No other significant finding. IMPRESSION: 1 Findings of COPD suggested. 2 Small bilateral pleural effusions slightly increased in size since the prior examination dated 05/10. Slight linear subsegmental densities at the left lung base may represent atelectasis/infiltra te. TECHNICAL DOCUMENTATION: JOB ID: [id number] [employer]- All Rights Reserved Reading location - IP/workstation name: [email or web address]
[2018-05-13] MEDS: ENOXAPARIN SODIUM INJ 40 MG/0.4 ML DISP.SYRIN SUBCUT SCH (10:01)
[2018-05-13] MEDS ORDERED: LOPERAMIDE HCL 2 MG CAPSULE PO PRN (12:08)
[2018-05-13] MEDS: CEFTRIAXONE SODIUM 1,000 MG in NORMAL SALINE 50 ML IV SCH (20:17)
[2018-05-13] MEDS: AZITHROMYCIN 500 MG in DEXTROSE 5%-WATER 250 ML IV SCH (23:32)
[2018-05-14] MEDS: LANSOPRAZOLE 30 MG TAB.RAP.DR PO SCH (05:27)
[2018-05-14 06:52] LABS: ABSOLUTE EOSINOPHILS # (AUTO) 0.1 10^3/uL (0.0-0.6); ABSOLUTE LYMPHOCYTES (AUTO) 1.6 10^3/uL (0.5-4.7); ABSOLUTE MONOCYTES (AUTO) 1.2 10^3/uL (0.1-1.4); ABSOLUTE NEUT (AUTO) 3.9 10^3/uL (1.7-8.2); BASOPHILS % (AUTO) 0.4 % (0-2); EOSINOPHILS % (AUTO) 1.8 % (0-6); HEMOGLOBIN 10.6 g/dL (12.0-15.5); LYMPHOCYTES % (AUTO) 23.3 % (13-45); MEAN CORPUSCULAR HEMOGLOBIN 31.6 pg (27.0-33.4); MEAN CORPUSCULAR HGB CONC 34.4 g/dL (32.0-36.0); MEAN CORPUSCULAR VOLUME 92 fl (80-97); MONOCYTES % (AUTO) 17.9 % (3-13); PLATELET COUNT 155 10^3/uL (150-450); RED BLOOD COUNT 3.37 10^6/uL (3.72-5.28); RED CELL DISTRIBUTION WIDTH 15.1 % (11.5-14.0); SEGMENTED NEUTROPHILS % (AUTO) 56.6 % (42-78); TOTAL CELLS COUNTED % (AUTO) 100 %; WHITE BLOOD COUNT 6.9 10^3/uL (4.0-10.5)
[2018-05-14 07:07] LABS: ANION GAP 14 (5-19); BLOOD UREA NITROGEN 13 mg/dL (7-20); CARBON DIOXIDE 18 mmol/L (22-30); CHLORIDE 107 mmol/L (98-107); GLUCOSE 98 mg/dL (75-110); POTASSIUM 3.2 mmol/L (3.6-5.0); SODIUM 139.3 mmol/L (137-145)
[2018-05-14] MEDS ORDERED: FUROSEMIDE 20 MG TABLET PO ONE (09:00)
[2018-05-14] MEDS ORDERED: POTASSIUM CHLORIDE 10 MEQ CAPSULE.ER PO ONE (09:00)
[2018-05-14] MEDS: ENOXAPARIN SODIUM INJ 40 MG/0.4 ML DISP.SYRIN SUBCUT SCH (09:22)
[2018-05-14] MEDS: AMLODIPINE BESYLATE 5 MG TABLET PO SCH (09:23)
[2018-05-14] MEDS: GUAIFENESIN 600 MG TABLET.SA PO SCH ×2 (09:23→21:56)
[2018-05-14] MEDS: LACTOBACILLUS ACIDOPHILUS 250 MG TAB PO SCH ×2 (09:24→17:44)
--- NOTE | 2018-05-14 10:26 | PDOC PROGRESS REPORT ---
Subjective Progress Note for:: 05/14/18 Subjective:: Patient is currently doing fair Patient's chest x-ray is still persistent with some atelectasis or infiltrate small pleural effusions Patient also episode of loose stool yesterday Patient's C. difficile is all negative Since walk with the physical therapy yesterday and the patient's preferred to go home with the home health and physical therapy Patient's denied any chest pain denied any shortness of the breath Reason For Visit: FEVER, PNEUMONIA Physical Exam Vital Signs: Temp Pulse Resp BP Pulse Ox 98.9 F 83 16 119/51 L 90 L 05/14/18 07:27 05/14/18 07:27 05/14/18 07:27 05/14/18 07:27 05/14/18 07:27 Intake & Output 05/13/18 05/14/18 05/15/18 06:59 06:59 06:59 Intake Total 1828 802 Output Total 600 525 Balance 1228 277 Weight 54.1 kg 55.9 kg General appearance: PRESENT: no acute distress, well-developed, well-nourished Head exam: PRESENT: atraumatic, normocephalic Eye exam: PRESENT: conjunctiva pink, EOMI, PERRLA. ABSENT: scleral icterus Ear exam: PRESENT: normal external ear exam Mouth exam: PRESENT: moist, tongue midline Neck exam: PRESENT: full ROM. ABSENT: carotid bruit, JVD, lymphadenopathy, thyromegaly Respiratory exam: PRESENT: clear to auscultation shane Cardiovascular exam: PRESENT: RRR. ABSENT: diastolic murmur, rubs, systolic murmur Pulses: PRESENT: normal dorsalis pedis pul, +2 pedal pulses bilateral Vascular exam: PRESENT: normal capillary refill GI/Abdominal exam: PRESENT: normal bowel sounds, soft. ABSENT: distended, guarding, mass, organolmegaly, rebound, tenderness Rectal exam: PRESENT: deferred Extremities exam: ABSENT: pedal edema Musculoskeletal exam: PRESENT: ambulatory Neurological exam: PRESENT: alert, awake, oriented to person, oriented to place , oriented to time, oriented to situation, CN II-XII grossly intact. ABSENT: motor sensory deficit Psychiatric exam: PRESENT: appropriate affect, normal mood. ABSENT: homicidal ideation, suicidal ideation Skin exam: PRESENT: dry, intact, warm. ABSENT: cyanosis, rash Results Laboratory Results: 05/14/18 06:43 05/14/18 06:43 05/13/18 05/14/18 05/14/18 06:20 06:43 06:43 WBC 6.9 RBC 3.37 L Hgb 10.6 L Hct 31.0 L MCV 92 MCH 31.6 MCHC 34.4 RDW 15.1 H Plt Count 155 Seg Neutrophils % 56.6 Lymphocytes % 23.3 Monocytes % 17.9 H Eosinophils % 1.8 Basophils % 0.4 Absolute Neutrophils 3.9 Absolute Lymphocytes 1.6 Absolute Monocytes 1.2 Absolute Eosinophils 0.1 Absolute Basophils 0.0 Sodium 139.3 Potassium 3.2 L Chloride 107 Carbon Dioxide 18 L Anion Gap 14 BUN 13 Creatinine 0.71 Est GFR ( Amer) > 60 Est GFR (Non-Af Amer) > 60 Glucose 98 Calcium 9.0 Iron 10.5 L TIBC 202 L % Saturation 5 Ferritin 178.00 Vitamin B12 > 1000.0 H Folate 16.00 Impressions: Chest X-Ray 05/13/18 00:00 IMPRESSION: 1 Findings of COPD suggested. 2 Small bilateral pleural effusions slightly increased in size since the prior examination dated 05/10/2018. Slight linear subsegmental densities at the left lung base may represent atelectasis/infiltrate. Assessment & Plan - Diagnosis (1) Left lower lobe pneumonia Qualifiers: Pneumonia type: due to unspecified organism Qualified Code(s): J18.1 - Lobar pneumonia, unspecified organism Is this a current diagnosis for this admission?: Yes Plan: Continues to IV antibiotic we will repeat the chest x-ray in the morning (2) Nausea vomiting and diarrhea Is this a current diagnosis for this admission?: Yes Plan: Most likely IBS issue we will consult the GI for further evaluations (3) Chronic back pain Qualifiers: Back pain location: low back pain Is this a current diagnosis for this admission?: Yes (4) UTI (urinary tract infection) Qualifiers: Urinary tract infection type: site unspecified Is this a current diagnosis for this admission?: Yes Plan: Continues recurrent urinary tract infections with recently a urethroscope was done Patient have an appointment to see the urologist on Sunday we will send the urine for the culture (5) Weakness Is this a current diagnosis for this admission?: Yes Plan: Discussed with the patient's possible rehab placement patient's preferred to go home will talk to the patient's daughter (6) Hypertension Qualifiers: Hypertension type: essential hypertension Qualified Code(s): I10 - Essential (primary) hypertension Is this a current diagnosis for this admission?: Yes (7) Irritable bowel syndrome Qualifiers: Irritable bowel syndrome type: with both diarrhea and constipation Qualified Code(s): K58.2 - Mixed irritable bowel syndrome Is this a current diagnosis for this admission?: Yes (8) Hypokalemia Is this a current diagnosis for this admission?: Yes Plan: Replace the potassium - Time Time Spent with patient: 15-24 minutes Medications reviewed and adjusted accordingly: Yes Anticipated discharge: Home with Homehealth Within: Other - Inpatient Certification Medical Necessity: Need Close Monitoring Due to Risk of Patient Decompensation Post Hospital Care: D/C Insurance Follow Up Specialist Documentation - Plan Summary Plan Summary: Replace the potassiums Consult to GI At the [facility] Will wait for the 2D echo report Repeat the chest x-ray in the morning
--- NOTE | 2018-05-14 14:04 | PDOC CONSULTATION ---
Consultation Consult Date: 05/14/18 Attending physician:: RAMAN MELISSA Consult reason:: nausea and dyspepsia. poor appetite History of Present Illness Admission Date/PCP: 05/10/18 20:43 EVELYN MINER MD History of Present Illness: UBALDO FELIX is a 88 year old female patient is not a good historian she tells me that she does not feel good all over she has been having loose stools but denies it being a significant problem patient states that does not feel like eating has a poor appetite has some early satiety patient denies any nausea or vomiting there is no melena patient states has some GERD denies any rectal bleeding Past Medical History Cardiac Medical History: Reports: Hypertension Denies: Coronary Artery Disease, Myocardial Infarction Pulmonary Medical History: Reports: Pneumonia - 2014 Denies: Asthma, Bronchitis, Chronic Obstructive Pulmonary Disease (COPD) Neurological Medical History: Denies: Seizures GI Medical History: Reports: Gastroesophageal Reflux Disease Musculoskeltal Medical History: Hematology: Reports: Anemia - after pneumonia 2014 Past Surgical History Past Surgical History: Reports: Appendectomy, Cholecystectomy, Hysterectomy, Orthopedic Surgery - shane feet Social History Lives with: Family Smoking Status: Never Smoker Frequency of Alcohol Use: None Hx Recreational Drug Use: No Hx Prescription Drug Abuse: No - Advance Directive Resuscitation Status: Full Code Family History Family History: Reviewed & Not Pertinent Parental Family History Reviewed: Yes Children Family History Reviewed: Unknown Sibling(s) Family History Reviewed.: Unknown Medication/Allergy Home Medications: Amlodipine Besylate [Norvasc 10 mg Tablet] 10 mg PO DAILY 05/10/18 Omeprazole 20 mg PO DAILY 05/10/18 Allergies/Adverse Reactions: doxycycline Allergy (Severe, Verified 05/10/18 18:18) GI upset nitrofurantoin [From Macrobid] Allergy (Severe, Verified 05/10/18 18:18) headaches, nausea celecoxib [From Celebrex] Allergy (Verified 05/10/18 18:18) ciprofloxacin [From Cipro] Allergy (Verified 05/10/18 18:18) oxycodone Allergy (Verified 05/10/18 18:18) sulfamethoxazole [From Bactrim] Allergy (Verified 05/10/18 18:18) trimethoprim [From Bactrim] Allergy (Verified 05/10/18 18:18) Review of Systems Constitutional: PRESENT: weakness. ABSENT: fever(s), headache(s), night sweats Eyes: ABSENT: visual disturbances Ears: ABSENT: hearing changes Cardiovascular: ABSENT: orthropnea Respiratory: ABSENT: dyspnea, hemoptysis Gastrointestinal: PRESENT: nausea. ABSENT: hematochezia, melena Genitourinary: ABSENT: dysuria, hematuria Musculoskeletal: ABSENT: deformity, joint swelling Neurological: ABSENT: syncope, tingling, tremor(s), vertigo Endocrine: ABSENT: polydipsia, polyphagia, polyuria Hematologic/Lymphatic: ABSENT: easy bruising Physical Exam Vital Signs: Temp Pulse Resp BP Pulse Ox 98.9 F 83 16 119/51 L 90 L 05/14/18 07:27 05/14/18 07:27 05/14/18 07:27 05/14/18 07:27 05/14/18 07:27 Intake & Output 05/13/18 05/14/18 05/15/18 06:59 06:59 06:59 Intake Total 1828 802 Output Total 600 525 Balance 1228 277 Weight 54.1 kg 55.9 kg General appearance: PRESENT: no acute distress, well-developed, well-nourished Head exam: PRESENT: atraumatic, normocephalic Eye exam: PRESENT: EOMI, PERRLA. ABSENT: nystagmus, periorbital swelling, scleral icterus Mouth exam: PRESENT: moist, neck supple Teeth exam: ABSENT: edentulous, poor dentation Throat exam: ABSENT: tonsillar exudate, tonsillogmegaly Neck exam: ABSENT: meningismus, tenderness, thyromegaly Respiratory exam: PRESENT: symmetrical, unlabored. ABSENT: tachypnea, wheezes Cardiovascular exam: PRESENT: RRR, +S1, +S2 GI/Abdominal exam: PRESENT: soft. ABSENT: rebound, rigid, tenderness Extremities exam: ABSENT: joint swelling Musculoskeletal exam: PRESENT: full ROM Neurological exam: PRESENT: alert, awake, oriented to time, CN II-XII grossly intact Focused psych exam: ABSENT: restlessness Skin exam: PRESENT: normal color. ABSENT: mottled, pallor, urticaria, vesicles Results Laboratory Results: 05/14/18 06:43 05/14/18 06:43 05/13/18 05/14/18 05/14/18 06:20 06:43 06:43 WBC 6.9 RBC 3.37 L Hgb 10.6 L Hct 31.0 L MCV 92 MCH 31.6 MCHC 34.4 RDW 15.1 H Plt Count 155 Seg Neutrophils % 56.6 Lymphocytes % 23.3 Monocytes % 17.9 H Eosinophils % 1.8 Basophils % 0.4 Absolute Neutrophils 3.9 Absolute Lymphocytes 1.6 Absolute Monocytes 1.2 Absolute Eosinophils 0.1 Absolute Basophils 0.0 Sodium 139.3 Potassium 3.2 L Chloride 107 Carbon Dioxide 18 L Anion Gap 14 BUN 13 Creatinine 0.71 Est GFR ( Amer) > 60 Est GFR (Non-Af Amer) > 60 Glucose 98 Calcium 9.0 Iron 10.5 L TIBC 202 L % Saturation 5 Ferritin 178.00 Vitamin B12 > 1000.0 H Folate 16.00 Impressions: Chest X-Ray 05/13/18 00:00 IMPRESSION: 1 Findings of COPD suggested. 2 Small bilateral pleural effusions slightly increased in size since the prior examination dated 05/10/2018. Slight linear subsegmental densities at the left lung base may represent atelectasis/infiltrate. Assessment & Plan - Diagnosis (1) Dyspepsia Plan: associated with early satiety, poor appetite ? atypical presentation of gastric ulcer disease will need EGD Risks, benefits and alternatives are discussed with the patient in detail will proceed with EGD first then may consider colonoscopy will schedule for tomorrow - Time Time Spent: 50 to 70 Minutes
[2018-05-14 16:29] LABS: ANION GAP 13 (5-19); BLOOD UREA NITROGEN 15 mg/dL (7-20); CALCIUM 8.9 mg/dL (8.4-10.2); CARBON DIOXIDE 19 mmol/L (22-30); CHLORIDE 107 mmol/L (98-107); GLUCOSE 91 mg/dL (75-110); SODIUM 138.6 mmol/L (137-145)
--- NOTE | 2018-05-14 18:52 | XCELERA REPORT ---
[address] [address] Transthoracic Echocardiogram Report Name: UBALDO FELIX Age: 88 yrs Gender: Female : 1930 Patient Status: Inpatient Patient Location: [address] [place] [address] Study Date: 05/14/2018 09:56 AM Procedure: A complete two-dimensional transthoracic echocardiogram was performed (2D, M-mode, spectral and color flow Doppler). The study was technically difficult with many images being suboptimal in quality. Reason For Study: sob Ordering Physician: EVELYN MINER Performed By: Maty Ni Interpretation Summary The left ventricular ejection fraction is normal. There is mild concentric left ventricular hypertrophy. The left ventricle is grossly normal size. Doppler measurements suggest pseudonormalized left ventricular relaxation, which is associated with grade II/IV or mild to moderate diastolic dysfunction Wall motion cannot be accurately commented on, but no definite regional wall motion abnormalities noted. Not all wall segments were well visualized. The right ventricular systolic function is normal. The left atrium is mildly dilated. The right atrium is normal in size There is a trace to mild amount of mitral regurgitation There is no mitral valve stenosis. No aortic regurgitation is present. There is no aortic valve stenosis There is no tricuspid stenosis. No tricuspid regurgitation. The aortic root is not well visualized but is probably normal size. The inferior vena cava appeared normal and decreased > 50% with respiration (RAP 5-10 mmHg) There is no pericardial effusion. MMode/2D Measurements & Calculations RVDd: 2.8 cm LVIDd: 4.8 cm FS: 35.7 % Ao root diam: 2.9 cm IVSd: 0.82 cm LVIDs: 3.1 cm EDV(Teich): Ao root area: LVPWd: 0.86 cm 108.7 ml 6.4 cm2 ESV(Teich): 38.0 ml EF(Teich): 65.0 % LVOT diam: 2.1 cm EDV(MOD-sp4): SV(MOD-sp4): LVOT area: 71.8 ml 43.1 ml 3.3 cm2 ESV(MOD-sp4): 28.7 ml EF(MOD-sp4): 60.0 % Doppler Measurements & Calculations MV E max inna: MV V2 max: MV dec slope: Ao V2 max: 108.1 cm/sec 212.5 cm/sec 457.7 cm/sec2 124.5 cm/sec MV A max inna: MV max PG: MV dec time: Ao max P.0 cm/sec 18.1 mmHg 0.24 sec 6.2 mmHg MV E/A: 0.60 MV V2 mean: KANDIS(V,D): 2.9 cm2 102.5 cm/sec MV mean P.5 mmHg MV V2 VTI: 44.8 cm LV V1 max PG: PA V2 max: PI max inna: 4.6 mmHg 111.5 cm/sec 171.7 cm/sec LV V1 max: PA max PG: PI max P.8 mmHg 107.1 cm/sec 5.0 mmHg PI dec slope: 163.6 cm/sec2 Left Ventricle The left ventricle is grossly normal size. There is mild concentric left ventricular hypertrophy. The left ventricular ejection fraction is normal. Doppler measurements suggest pseudonormalized left ventricular relaxation, which is associated with grade II/IV or mild to moderate diastolic dysfunction. Wall motion cannot be accurately commented on, but no definite regional wall motion abnormalities noted. Not all wall segments were well visualized. Right Ventricle The right ventricle is grossly normal size. There is normal right ventricular wall thickness. The right ventricular systolic function is normal. Atria The right atrium is normal in size. The left atrium is mildly dilated. Interarterial septum not well visualized and not well dopplered. Cannot comment on ASD/PFO presence. Mitral Valve There is mild mitral leaflet calcification. There is moderate mitral annular calcification. There is no mitral valve stenosis. There is a trace to mild amount of mitral regurgitation. Aortic Valve The aortic valve is not well visualized secondary to technical limitations. There is no aortic valve stenosis. No aortic regurgitation is present. Tricuspid Valve The tricuspid valve is not well visualized secondary to technical limitations. There is no tricuspid stenosis. No tricuspid regurgitation. Pulmonic Valve The pulmonic valve is not well visualized. Great Vessels The aortic root is not well visualized but is probably normal size. The inferior vena cava appeared normal and decreased > 50% with respiration (RAP 5-10 mmHg). Effusions There is no pericardial effusion. : EVELYN MINER > Yandel Flannery
[2018-05-14] MEDS: CEFTRIAXONE SODIUM 1,000 MG in NORMAL SALINE 50 ML IV SCH (21:56)
[2018-05-14] MEDS: AZITHROMYCIN 500 MG in DEXTROSE 5%-WATER 250 ML IV SCH (21:56)
[2018-05-15] MEDS: LANSOPRAZOLE 30 MG TAB.RAP.DR PO SCH (05:38)
[2018-05-15 06:50] LABS: ABSOLUTE EOSINOPHILS # (AUTO) 0.1 10^3/uL (0.0-0.6); ABSOLUTE LYMPHOCYTES (AUTO) 1.5 10^3/uL (0.5-4.7); ABSOLUTE MONOCYTES (AUTO) 1.2 10^3/uL (0.1-1.4); ABSOLUTE NEUT (AUTO) 3.6 10^3/uL (1.7-8.2); BASOPHILS % (AUTO) 0.5 % (0-2); EOSINOPHILS % (AUTO) 2.2 % (0-6); HEMATOCRIT 26.7 % (36.0-47.0); HEMOGLOBIN 9.2 g/dL (12.0-15.5); LYMPHOCYTES % (AUTO) 23.1 % (13-45); MEAN CORPUSCULAR HEMOGLOBIN 31.7 pg (27.0-33.4); MEAN CORPUSCULAR HGB CONC 34.6 g/dL (32.0-36.0); MEAN CORPUSCULAR VOLUME 92 fl (80-97); MONOCYTES % (AUTO) 18.3 % (3-13); PLATELET COUNT 174 10^3/uL (150-450); RED BLOOD COUNT 2.92 10^6/uL (3.72-5.28); RED CELL DISTRIBUTION WIDTH 14.8 % (11.5-14.0); SEGMENTED NEUTROPHILS % (AUTO) 55.9 % (42-78); TOTAL CELLS COUNTED % (AUTO) 100 %; WHITE BLOOD COUNT 6.4 10^3/uL (4.0-10.5)
[2018-05-15 07:13] LABS: ANION GAP 14 (5-19); BLOOD UREA NITROGEN 15 mg/dL (7-20); CALCIUM 8.7 mg/dL (8.4-10.2); CARBON DIOXIDE 18 mmol/L (22-30); CHLORIDE 108 mmol/L (98-107); GLUCOSE 92 mg/dL (75-110); POTASSIUM 3.4 mmol/L (3.6-5.0); SODIUM 140.3 mmol/L (137-145)
[2018-05-15] MEDS ORDERED: DIPHENHYDRAMINE HCL 50 MG/ML VIAL ONE (07:56)
[2018-05-15] MEDS ORDERED: ONDANSETRON HCL INJ/PF 4 MG/2 ML SDV ONE (07:56)
[2018-05-15] MEDS ORDERED: NALOXONE HCL INJ/PF 0.4 MG/1 ML SDV ONE (07:57)
[2018-05-15] MEDS ORDERED: FENTANYL CITRATE INJ/PF 100 MCG/2 ML AMPUL ONE (07:57)
[2018-05-15] MEDS ORDERED: GLUCAGON,HUMAN RECOMB 1 MG INJ ONE (07:57)
[2018-05-15] MEDS ORDERED: FLUMAZENIL INJ 0.5 MG/5 ML VIAL ONE (07:57)
[2018-05-15] MEDS ORDERED: EPINEPHRINE INJ 1 MG/10 ML DISP.SYRIN ONE (07:57)
[2018-05-15] MEDS ORDERED: ACETAMINOPHEN 325 MG TABLET PO PRN (08:07)
[2018-05-15] MEDS: MIDAZOLAM 2 MG/2 ML INJ ONE ×2 (08:26→08:28)
--- NOTE | 2018-05-15 08:39 | Operative Report ---
Operative Report DATE OF SURGERY: 05/15/18 Operative Report: The risks benefits and alternatives of the procedure explained to the patient in detail and informed consent is obtained.A GIF Olympus video scope was inserted into the patient's mouth and hypopharynx, the esophagus is identified intubated and insufflated, the scope was then advanced through the esophagus stomach and duodenum ,retroflexion maneuver is done, the esophagus stomach and first and second portions of the duodenum examined PREOPERATIVE DIAGNOSIS: Dyspepsia, nausea vomiting POSTOPERATIVE DIAGNOSIS: Gastritis, biopsies obtained to rule out Helicobacter pylori. Hiatal hernia. Duodenitis OPERATION: EGD with biopsy SURGEON: RAMAN MELISSA ANESTHESIA: Moderate Sedation - 3 mg of Versed. Conscious sedation monitoring time 30 minutes. TISSUE REMOVED OR ALTERED: As noted above. COMPLICATIONS: None. ESTIMATED BLOOD LOSS: None. INTRAOPERATIVE FINDINGS: As noted above. PROCEDURE: Patient tolerated procedure well. No immediate postprocedure complications are noted. Patient is sent back to her room in good condition. Wait on biopsies. Continue current medications, diet and activity level. Follow-up as outpatient
[2018-05-15] MEDS ORDERED: LANSOPRAZOLE 30 MG TAB.RAP.DR PO ONE (14:30)
[2018-05-15] MEDS: LACTOBACILLUS ACIDOPHILUS 250 MG TAB PO SCH ×2 (14:34→18:01)
[2018-05-15] MEDS: ENOXAPARIN SODIUM INJ 40 MG/0.4 ML DISP.SYRIN SUBCUT SCH (14:34)
[2018-05-15] MEDS: GUAIFENESIN 600 MG TABLET.SA PO SCH ×2 (14:35→21:45)
[2018-05-15] MEDS: AMLODIPINE BESYLATE 5 MG TABLET PO SCH (14:36)
--- NOTE | 2018-05-15 16:54 | PDOC PROGRESS REPORT ---
Subjective Progress Note for:: 05/15/18 Subjective:: Patient is currently doing well Patient is going for the endoscopy today Patient's other than that denied any other symptoms Agree to go to the rehab facility Patient's echocardiogram with a normal EF with some mild diastolic dysfunctions Reason For Visit: FEVER, PNEUMONIA Physical Exam Vital Signs: Temp Pulse Resp BP Pulse Ox 98.2 F 84 16 114/44 L 91 L 05/15/18 15:27 05/15/18 15:27 05/15/18 15:27 05/15/18 15:27 05/15/18 15:27 Intake & Output 05/14/18 05/15/18 05/16/18 06:59 06:59 06:59 Intake Total 802 857 100 Output Total 525 900 Balance 277 -43 100 Weight 55.9 kg 53.9 kg General appearance: PRESENT: no acute distress, well-developed, well-nourished Head exam: PRESENT: atraumatic, normocephalic Eye exam: PRESENT: conjunctiva pink, EOMI, PERRLA. ABSENT: scleral icterus Ear exam: PRESENT: normal external ear exam Mouth exam: PRESENT: moist, tongue midline Neck exam: PRESENT: full ROM. ABSENT: carotid bruit, JVD, lymphadenopathy, thyromegaly Respiratory exam: PRESENT: clear to auscultation shane Cardiovascular exam: PRESENT: RRR. ABSENT: diastolic murmur, rubs, systolic murmur Pulses: PRESENT: normal dorsalis pedis pul, +2 pedal pulses bilateral Vascular exam: PRESENT: normal capillary refill GI/Abdominal exam: PRESENT: normal bowel sounds, soft. ABSENT: distended, guarding, mass, organolmegaly, rebound, tenderness Rectal exam: PRESENT: deferred Musculoskeletal exam: PRESENT: ambulatory Neurological exam: PRESENT: alert, awake, oriented to person, oriented to place , oriented to time, oriented to situation, CN II-XII grossly intact. ABSENT: motor sensory deficit Psychiatric exam: PRESENT: appropriate affect, normal mood. ABSENT: homicidal ideation, suicidal ideation Skin exam: PRESENT: dry, intact, warm. ABSENT: cyanosis, rash Results Laboratory Results: 05/15/18 06:00 05/15/18 06:00 05/15/18 05/15/18 06:00 06:00 WBC 6.4 RBC 2.92 L Hgb 9.2 L Hct 26.7 L MCV 92 MCH 31.7 MCHC 34.6 RDW 14.8 H Plt Count 174 Seg Neutrophils % 55.9 Lymphocytes % 23.1 Monocytes % 18.3 H Eosinophils % 2.2 Basophils % 0.5 Absolute Neutrophils 3.6 Absolute Lymphocytes 1.5 Absolute Monocytes 1.2 Absolute Eosinophils 0.1 Absolute Basophils 0.0 Sodium 140.3 Potassium 3.4 L Chloride 108 H Carbon Dioxide 18 L Anion Gap 14 BUN 15 Creatinine 0.79 Est GFR ( Amer) > 60 Est GFR (Non-Af Amer) > 60 Glucose 92 Calcium 8.7 Impressions: Chest X-Ray 05/13/18 00:00 IMPRESSION: 1 Findings of COPD suggested. 2 Small bilateral pleural effusions slightly increased in size since the prior examination dated 05/10/2018. Slight linear subsegmental densities at the left lung base may represent atelectasis/infiltrate. Assessment & Plan - Diagnosis (1) Left lower lobe pneumonia Qualifiers: Pneumonia type: due to unspecified organism Qualified Code(s): J18.1 - Lobar pneumonia, unspecified organism Is this a current diagnosis for this admission?: Yes Plan: Continues to current antibiotic we will recheck the chest x-ray (2) Nausea vomiting and diarrhea Is this a current diagnosis for this admission?: Yes Plan: Scheduled for the endoscopy today (3) Chronic back pain Qualifiers: Back pain location: low back pain Is this a current diagnosis for this admission?: Yes (4) UTI (urinary tract infection) Qualifiers: Urinary tract infection type: site unspecified Is this a current diagnosis for this admission?: Yes Plan: Patient's currently on IV antibiotics follow urology as outpatient (5) Weakness Is this a current diagnosis for this admission?: Yes Plan: Plan to discharge in the rehab facility (6) Hypertension Qualifiers: Hypertension type: essential hypertension Qualified Code(s): I10 - Essential (primary) hypertension Is this a current diagnosis for this admission?: Yes Plan: Currently all stable (7) Irritable bowel syndrome Qualifiers: Irritable bowel syndrome type: with both diarrhea and constipation Qualified Code(s): K58.2 - Mixed irritable bowel syndrome Is this a current diagnosis for this admission?: Yes (8) Hypokalemia Is this a current diagnosis for this admission?: Yes Plan: Replace the potassium - Time Time Spent with patient: 15-24 minutes Medications reviewed and adjusted accordingly: Yes Anticipated discharge: SNF Within: within 24 hours - Inpatient Certification Medical Necessity: Need Close Monitoring Due to Risk of Patient Decompensation Post Hospital Care: D/C Software Configuration Analyst Documentation - Plan Summary Plan Summary: Discussed with the daughter were extensively regarding the patient's current conditions Patient is seen in the hospital 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
--- NOTE | 2018-05-15 17:34 | RADIOLOGY REPORT (SQ) ---
EXAM DESCRIPTION: CHEST 2 VIEWS COMPLETED DATE/TIME: 05/15/2018 5:22 pm REASON FOR STUDY: Pneumonia COMPARISON: 05/13/2018 EXAM PARAMETERS: NUMBER OF VIEWS: two views TECHNIQUE: Digital Frontal and Lateral radiographic views of the chest acquired. RADIATION DOSE: NA LIMITATIONS: none FINDINGS: LUNGS AND PLEURA: Pleural effusions have resolved. No infiltrate or mass. MEDIASTINUM AND HILAR STRUCTURES: No masses or contour abnormalities. HEART AND VASCULAR STRUCTURES: Heart normal size. No evidence for failure. BONES: No acute findings. HARDWARE: None in the chest. OTHER: No other significant finding. IMPRESSION: No acute cardiopulmonary disease. TECHNICAL DOCUMENTATION: JOB ID: [id number] [employer]- All Rights Reserved Reading location - IP/workstation name: [email or web address]
[2018-05-15] MEDS: AZITHROMYCIN 500 MG in DEXTROSE 5%-WATER 250 ML IV SCH (21:42)
[2018-05-15] MEDS: CEFTRIAXONE SODIUM 1,000 MG in NORMAL SALINE 50 ML IV SCH (21:43)
[2018-05-16] MEDS: LANSOPRAZOLE 30 MG TAB.RAP.DR PO SCH (05:33)
[2018-05-16 06:14] LABS: ABSOLUTE EOSINOPHILS # (AUTO) 0.1 10^3/uL (0.0-0.6); ABSOLUTE LYMPHOCYTES (AUTO) 1.3 10^3/uL (0.5-4.7); ABSOLUTE MONOCYTES (AUTO) 1.1 10^3/uL (0.1-1.4); ABSOLUTE NEUT (AUTO) 3.3 10^3/uL (1.7-8.2); BASOPHILS % (AUTO) 0.2 % (0-2); EOSINOPHILS % (AUTO) 1.8 % (0-6); HEMATOCRIT 27.4 % (36.0-47.0); HEMOGLOBIN 9.4 g/dL (12.0-15.5); LYMPHOCYTES % (AUTO) 22.1 % (13-45); MEAN CORPUSCULAR HEMOGLOBIN 31.5 pg (27.0-33.4); MEAN CORPUSCULAR HGB CONC 34.4 g/dL (32.0-36.0); MEAN CORPUSCULAR VOLUME 92 fl (80-97); MONOCYTES % (AUTO) 19.1 % (3-13); PLATELET COUNT 193 10^3/uL (150-450); RED CELL DISTRIBUTION WIDTH 14.7 % (11.5-14.0); SEGMENTED NEUTROPHILS % (AUTO) 56.8 % (42-78); TOTAL CELLS COUNTED % (AUTO) 100 %; WHITE BLOOD COUNT 5.7 10^3/uL (4.0-10.5)
[2018-05-16 06:35] LABS: ANION GAP 12 (5-19); BLOOD UREA NITROGEN 11 mg/dL (7-20); CALCIUM 8.7 mg/dL (8.4-10.2); CARBON DIOXIDE 20 mmol/L (22-30); CHLORIDE 109 mmol/L (98-107); GLUCOSE 98 mg/dL (75-110); POTASSIUM 3.3 mmol/L (3.6-5.0); SODIUM 141.3 mmol/L (137-145)
[2018-05-16] MEDS ORDERED: POTASSIUM CHLORIDE 10 MEQ CAPSULE.ER PO ONE ×2 (09:00→11:02)
--- NOTE | 2018-05-16 09:03 | PDOC PROGRESS REPORT ---
Subjective Progress Note for:: 05/16/18 Subjective:: Patient is currently doing much better pt had a endoscopy was done which showed some gastritis and duodenitis Since chest x-rays all clear Patient's denied any chest pain denied any shortness of the breath Reason For Visit: FEVER, PNEUMONIA Physical Exam Vital Signs: Temp Pulse Resp BP Pulse Ox 98.5 F 32 L 17 118/48 L 95 05/16/18 03:22 05/16/18 03:22 05/16/18 03:22 05/16/18 03:22 05/16/18 03:22 Intake & Output 05/15/18 05/16/18 05/17/18 06:59 06:59 06:59 Intake Total 857 1373 Output Total 900 900 Balance -43 473 Weight 53.9 kg 55.1 kg General appearance: PRESENT: no acute distress, well-developed, well-nourished Head exam: PRESENT: atraumatic, normocephalic Eye exam: PRESENT: conjunctiva pink, EOMI, PERRLA. ABSENT: scleral icterus Ear exam: PRESENT: normal external ear exam Mouth exam: PRESENT: moist, tongue midline Neck exam: PRESENT: full ROM. ABSENT: carotid bruit, JVD, lymphadenopathy, thyromegaly Respiratory exam: PRESENT: clear to auscultation shane Cardiovascular exam: PRESENT: RRR. ABSENT: diastolic murmur, rubs, systolic murmur Pulses: PRESENT: normal dorsalis pedis pul, +2 pedal pulses bilateral Vascular exam: PRESENT: normal capillary refill GI/Abdominal exam: PRESENT: normal bowel sounds, soft. ABSENT: distended, guarding, mass, organolmegaly, rebound, tenderness Rectal exam: PRESENT: deferred Extremities exam: ABSENT: pedal edema Musculoskeletal exam: PRESENT: ambulatory Neurological exam: PRESENT: alert, awake, oriented to person, oriented to place , oriented to time, oriented to situation, CN II-XII grossly intact. ABSENT: motor sensory deficit Psychiatric exam: PRESENT: appropriate affect, normal mood. ABSENT: homicidal ideation, suicidal ideation Skin exam: PRESENT: dry, intact, warm. ABSENT: cyanosis, rash Results Laboratory Results: 05/16/18 05:56 05/16/18 05:56 05/16/18 05/16/18 05:56 05:56 WBC 5.7 RBC 3.00 L Hgb 9.4 L Hct 27.4 L MCV 92 MCH 31.5 MCHC 34.4 RDW 14.7 H Plt Count 193 Seg Neutrophils % 56.8 Lymphocytes % 22.1 Monocytes % 19.1 H Eosinophils % 1.8 Basophils % 0.2 Absolute Neutrophils 3.3 Absolute Lymphocytes 1.3 Absolute Monocytes 1.1 Absolute Eosinophils 0.1 Absolute Basophils 0.0 Sodium 141.3 Potassium 3.3 L Chloride 109 H Carbon Dioxide 20 L Anion Gap 12 BUN 11 Creatinine 0.69 Est GFR ( Amer) > 60 Est GFR (Non-Af Amer) > 60 Glucose 98 Calcium 8.7 05/10/18 21:52 Blood Blood Culture - Final NO GROWTH IN 5 DAYS Impressions: Chest X-Ray 05/15/18 00:00 IMPRESSION: No acute cardiopulmonary disease. Assessment & Plan - Diagnosis (1) Left lower lobe pneumonia Qualifiers: Pneumonia type: due to unspecified organism Qualified Code(s): J18.1 - Lobar pneumonia, unspecified organism Is this a current diagnosis for this admission?: Yes Plan: Currently all resolved (2) Nausea vomiting and diarrhea Is this a current diagnosis for this admission?: Yes Plan: Currently all resolved (3) Chronic back pain Qualifiers: Back pain location: low back pain Is this a current diagnosis for this admission?: Yes (4) UTI (urinary tract infection) Qualifiers: Urinary tract infection type: site unspecified Is this a current diagnosis for this admission?: Yes Plan: Switch to the p.o. antibiotic (5) Weakness Is this a current diagnosis for this admission?: Yes Plan: Discussed the benefits of the rehab (6) Hypertension Qualifiers: Hypertension type: essential hypertension Qualified Code(s): I10 - Essential (primary) hypertension Is this a current diagnosis for this admission?: Yes Plan: Currently all stable (7) Irritable bowel syndrome Qualifiers: Irritable bowel syndrome type: with both diarrhea and constipation Qualified Code(s): K58.2 - Mixed irritable bowel syndrome Is this a current diagnosis for this admission?: Yes Plan: Will consider to use of Bentyl (8) Hypokalemia Is this a current diagnosis for this admission?: Yes Plan: Replace the potassium - Time Time Spent with patient: 15-24 minutes Medications reviewed and adjusted accordingly: Yes Anticipated discharge: SNF Within: within 24 hours - Inpatient Certification Medical Necessity: Need Close Monitoring Due to Risk of Patient Decompensation Post Hospital Care: D/C Debt Recovery Officer Documentation - Plan Summary Plan Summary: Continues to current medication I to wean off from the oxygen
[2018-05-16] MEDS: GUAIFENESIN 600 MG TABLET.SA PO SCH ×2 (11:05→22:02)
[2018-05-16] MEDS: AMLODIPINE BESYLATE 5 MG TABLET PO SCH (11:05)
[2018-05-16] MEDS: LACTOBACILLUS ACIDOPHILUS 250 MG TAB PO SCH ×2 (11:05→17:22)
[2018-05-16] MEDS: CEPHALEXIN 500 MG CAPSULE PO SCH ×2 (16:47→22:02)
--- NOTE | 2018-05-16 19:21 | PDOC PROGRESS REPORT ---
Subjective Progress Note for:: 05/16/18 Subjective:: patient tolerated her procedure well biopsies from her EGD is negative no H.Pylori is noted her diarrhea has resolved she is tolerating an oral diet patient can be followed up as an outpatient no post procedure complications are noted Reason For Visit: FEVER, PNEUMONIA Physical Exam Vital Signs: Temp Pulse Resp BP Pulse Ox 99.1 F 83 15 111/50 L 94 05/16/18 16:00 05/16/18 16:00 05/16/18 16:00 05/16/18 16:00 05/16/18 16:00 Intake & Output 05/15/18 05/16/18 05/17/18 06:59 06:59 06:59 Intake Total 857 1373 450 Output Total 900 900 Balance -43 473 450 Weight 53.9 kg 55.1 kg General appearance: PRESENT: no acute distress, well-developed, well-nourished Head exam: PRESENT: atraumatic, normocephalic Eye exam: PRESENT: EOMI, PERRLA. ABSENT: nystagmus, periorbital swelling, scleral icterus Mouth exam: PRESENT: moist, neck supple Throat exam: ABSENT: tonsillar exudate, tonsillogmegaly Neck exam: ABSENT: meningismus, tenderness, thyromegaly Respiratory exam: PRESENT: symmetrical, unlabored. ABSENT: tachypnea, wheezes Cardiovascular exam: PRESENT: RRR, +S1, +S2 GI/Abdominal exam: PRESENT: soft. ABSENT: rebound, rigid, tenderness Extremities exam: ABSENT: joint swelling Neurological exam: PRESENT: oriented to time, oriented to situation, CN II-XII grossly intact Psychiatric exam: PRESENT: flat affect Skin exam: PRESENT: normal color. ABSENT: mottled, pallor, urticaria, vesicles Results Laboratory Results: 05/16/18 05:56 05/16/18 05:56 05/16/18 05/16/18 05:56 05:56 WBC 5.7 RBC 3.00 L Hgb 9.4 L Hct 27.4 L MCV 92 MCH 31.5 MCHC 34.4 RDW 14.7 H Plt Count 193 Seg Neutrophils % 56.8 Lymphocytes % 22.1 Monocytes % 19.1 H Eosinophils % 1.8 Basophils % 0.2 Absolute Neutrophils 3.3 Absolute Lymphocytes 1.3 Absolute Monocytes 1.1 Absolute Eosinophils 0.1 Absolute Basophils 0.0 Sodium 141.3 Potassium 3.3 L Chloride 109 H Carbon Dioxide 20 L Anion Gap 12 BUN 11 Creatinine 0.69 Est GFR ( Amer) > 60 Est GFR (Non-Af Amer) > 60 Glucose 98 Calcium 8.7 05/10/18 21:52 Blood Blood Culture - Final NO GROWTH IN 5 DAYS Impressions: Chest X-Ray 05/15/18 00:00 IMPRESSION: No acute cardiopulmonary disease. Assessment & Plan - Diagnosis (1) Dyspepsia Is this a current diagnosis for this admission?: Yes Plan: biopsies are negative outpatient follow up would avoid PPI in the elderly, H2 david therapy should suffice from the GI standpoint she could be discharged - Time Time Spent with patient: 15-24 minutes
[2018-05-17] MEDS: LANSOPRAZOLE 30 MG TAB.RAP.DR PO SCH (06:21)
[2018-05-17] MEDS: CEPHALEXIN 500 MG CAPSULE PO SCH (06:21)
[2018-05-17 06:59] LABS: ANION GAP 11 (5-19)
[2018-05-17 07:35] LABS: BLOOD UREA NITROGEN 12 mg/dL (7-20); CARBON DIOXIDE 21 mmol/L (22-30); CHLORIDE 109 mmol/L (98-107); GLUCOSE 94 mg/dL (75-110); SODIUM 141.3 mmol/L (137-145)
--- NOTE | 2018-05-17 08:22 | PDOC TRANSFER SUMMARY ---
General - Admit/Disc Date/PCP Admission Date/Primary Care Provider: 05/10/18 20:43 EVELYN MINER MD Discharge Date: 05/17/18 - Discharge Diagnosis (1) Left lower lobe pneumonia Is this a current diagnosis for this admission?: Yes Summary: Currently all resolved (2) Nausea vomiting and diarrhea Is this a current diagnosis for this admission?: Yes Summary: Possible from gastritis (3) Chronic back pain Is this a current diagnosis for this admission?: Yes (4) UTI (urinary tract infection) Is this a current diagnosis for this admission?: Yes Summary: Patient have recurrent urinary tract infections follow outpatients urology (5) Weakness Is this a current diagnosis for this admission?: Yes (6) Hypertension Is this a current diagnosis for this admission?: Yes (7) Irritable bowel syndrome Is this a current diagnosis for this admission?: Yes (8) Hypokalemia Is this a current diagnosis for this admission?: Yes - Additional Information Resuscitation Status: Full Code Discharge Diet: Regular Discharge Activity: Activity As Tolerated Prescriptions: Cefuroxime Axetil [Ceftin 250 mg Tablet] 1 tab PO BID #10 tablet Lactobacillus Acidophilus [Acidophilus Lactobacilli] 1 each PO DAILY #30 capsule Mag Hydrox/Al Hydrox/Simeth [Maalox Plus Susp 30 Udcup] 15 ml PO Q6HP PRN #30 udc PRN Reason: Ranitidine HCl [Zantac] 150 mg PO BID #60 tablet Home Medications: Amlodipine Besylate [Norvasc 10 mg Tablet] 5 mg PO DAILY #0 05/17/18 Cefuroxime Axetil [Ceftin 250 mg Tablet] 1 tab PO BID #10 tablet 05/17/18 Lactobacillus Acidophilus [Acidophilus Lactobacilli] 1 each PO DAILY #30 capsule 05/17/18 Mag Hydrox/Al Hydrox/Simeth [Maalox Plus Susp 30 Udcup] 15 ml PO Q6HP PRN #30 udc 05/17/18 Ranitidine HCl [Zantac] 150 mg PO BID #60 tablet 05/17/18 History of Present Illness Admission Date/PCP: 05/10/18 20:43 EVELYN MINER MD History of Present Illness: UBALDO FELIX is a 88 year old female This 88-year-old female with a significant history of urinary tract infections with a recently have a urethroscopy was done recently admitting in the hospital for the UTI and the history of the chronic back pain call the office yesterday' s was complaining of fever not feeling well and directed to the emergency department with the patient was complaining of a cough and congestion for the last 3 days and patients diagnosed with a left-sided possible pneumonia According to the patient's last 3 days will feeling weak unable to eat much and the patient's increasing more cough and congestions and noticed a fever Patient's denied any chest pain denied any shortness of breath In the emergency department patient received Rocephin and Zithromax When I saw the patient is comfortably lying in the bed denied any complaints Patient also have a usable IBS symptoms Currently not noticed any diarrhea but patient was complaining of loose stool yesterday Hospital Course Hospital Course: This is a 88-year-old female present in the emergency department with a couple congestions and a fever and the patient was diagnosed with the lower lobe pneumonia and pseudomonal urinary tract infections treated with IV antibiotics Patient's response very well with that Patient is to remain afebrile Patient's white count is all normal Patient's chest x-ray is all clear Patient also have a persistent issue with this stomach and Dr. 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 Hall Patients follow outpatients currently is to urology while the hospital urology is closed Discussed with the daughter were extensively regarding the patient's current condition and close follow-up The to repeat the CBC and Chem-7 in 1 week Echocardiogram done with source of some diastolic mild dysfunctions but other than that normal EF Physical Exam Vital Signs: Temp Pulse Resp BP Pulse Ox 98.0 F 88 16 115/58 L 94 05/17/18 03:38 05/17/18 07:00 05/17/18 03:38 05/17/18 03:38 05/17/18 03:38 Intake & Output 05/16/18 05/17/18 05/18/18 06:59 06:59 06:59 Intake Total 1373 770 Output Total 900 Balance 473 770 Weight 55.1 kg 54.6 kg General appearance: PRESENT: no acute distress, well-developed, well-nourished Head exam: PRESENT: atraumatic, normocephalic Eye exam: PRESENT: conjunctiva pink, EOMI, PERRLA. ABSENT: scleral icterus Ear exam: PRESENT: normal external ear exam Mouth exam: PRESENT: moist, tongue midline Neck exam: ABSENT: carotid bruit, JVD, lymphadenopathy, thyromegaly Respiratory exam: PRESENT: clear to auscultation shane. ABSENT: rales, rhonchi, wheezes Cardiovascular exam: PRESENT: RRR. ABSENT: diastolic murmur, rubs, systolic murmur Pulses: PRESENT: normal dorsalis pedis pul Vascular exam: PRESENT: normal capillary refill GI/Abdominal exam: PRESENT: normal bowel sounds, soft. ABSENT: distended, guarding, mass, organolmegaly, rebound, tenderness Rectal exam: PRESENT: deferred Extremities exam: PRESENT: full ROM. ABSENT: calf tenderness, clubbing, pedal edema Neurological exam: PRESENT: alert, awake, oriented to person, oriented to place , oriented to time, oriented to situation, CN II-XII grossly intact. ABSENT: motor sensory deficit Psychiatric exam: PRESENT: appropriate affect, normal mood. ABSENT: homicidal ideation, suicidal ideation Skin exam: PRESENT: dry, intact, warm. ABSENT: cyanosis, rash Results Laboratory Results: 05/16/18 05:56 05/17/18 06:09 05/17/18 06:09 Sodium 141.3 Potassium 4.0 Chloride 109 H Carbon Dioxide 21 L Anion Gap 11 BUN 12 Creatinine 0.74 Est GFR ( Amer) > 60 Est GFR (Non-Af Amer) > 60 Glucose 94 Calcium 9.0 Impressions: Chest X-Ray 05/15/18 00:00 IMPRESSION: No acute cardiopulmonary disease. Transfer Plan - Time Spent with Patient Time spent with patient: Greater than 30 Minutes Qualifiers - * PATIENT BEING DISCHARGED WITH ANY OF THE FOLLOWING DIAGNOSIS: No VTE patient discharged on overlapping Therapy?: Yes Plan Time Spent: Greater than 30 Minutes - Follow-up outpatient urologist and manager long term care Repeat the CBC and Chem-7 in 1 week Fall precaution
[2018-05-17 09:41] VITALS: BP 130/54
[2018-05-17] MEDS: GUAIFENESIN 600 MG TABLET.SA PO SCH (11:13)
[2018-05-17] MEDS: LACTOBACILLUS ACIDOPHILUS 250 MG TAB PO SCH (11:15)
[2018-05-17] MEDS: AMLODIPINE BESYLATE 5 MG TABLET PO SCH (11:15)
== END 2018-05-17 14:00 | DRG 194 ==
LOC: ER 17:32 → EH 20:43 → 4S 22:51
PROVIDERS: ADMIT Family Medicine; ATTEND Family Medicine
PROC: 0DB68ZX Excision of Stomach, Via Natural or Artificial Opening Endoscopic, Diagnostic (ICD-10-PCS; principal; 2018-05-15 12:00)
DX: J18.9 Pneumonia, unspecified organism (principal); N39.0 Urinary tract infection, site not specified; E87.6 Hypokalemia; K29.70 Gastritis, unspecified, without bleeding; K29.80 Duodenitis without bleeding; K44.9 Diaphragmatic hernia without obstruction or gangrene; K58.9 Irritable bowel syndrome, unspecified; M54.9 Dorsalgia, unspecified; G89.29 Other chronic pain; I10 Essential (primary) hypertension; Z79.899 Other long term (current) drug therapy; K21.9 Gastro-esophageal reflux disease without esophagitis; Z90.49 Acquired absence of other specified parts of digestive tract; Z90.710 Acquired absence of both cervix and uterus; Z88.1 Allergy status to other antibiotic agents; Z88.8 Allergy status to other drugs, medicaments and biological substances
CPT/HCPCS: 36415; 43239; 71046; 80048; 80053; 81001; 82607; 82728; 82746; 83540; 83550; 83605; 83690; 83735; 84484; 85025; 85045; 87040; 87086; 87088; 87186; 87493; 88305; 88342; 93306; 96360; 96361; 99285; G8978-GP; G8979-GP; J0171; J0456; J0696; J1200; J1610; J1650; J2250; J2310; J2405; J3010; J3490; J7030; J7060

== ENCOUNTER → 2019-01-28 | Outpatient (CLI) | payer MEDICARE, OTHER ==
--- NOTE | 2019-01-28 12:05 | RADIOLOGY REPORT (SQ) ---
EXAM DESCRIPTION: MARYCARMEN SWALLOW COMPLETED DATE/TIME: 01/28/2019 11:41 am REASON FOR STUDY: OTHER DYSPHAGIA (R13.19) R13.19 OTHER DYSPHAGIA coughing with meals COMPARISON: None. TECHNIQUE: Videofluoroscopic swallowing examination was performed in conjunction with speech patholo gy. Videofluoroscopic imaging was obtained and reviewed and these are the findings: RADIATION DOSE: 1 minutes 58 seconds of fluoroscopy was used. 1 images saved to PACS. LIMITATIONS: None FINDINGS: The patient was brought into the fluoro room and placed upright on a modified barium swall ow chair. The patient was then given multiple consistencies mixed with barium to swallow under live fluoroscopic video guidance. According to the Speech Pathologist there was no penetration or aspirat ion. IMPRESSION: NO EVIDENCE OF PENETRATION OR ASPIRATION. PLEASE SEE SPEECH PATHOLOGIST REPORT FOR OTHER FINDINGS AND RECOMMENDATIONS. COMMENT: Quality ID [id number]: Final reports for procedures using fluoroscopy that document radiation exp osure indices, or exposure time and number of fluorographic images (if radiation exposure indices are not available) TECHNICAL DOCUMENTATION: JOB ID: [id number] [employer]- All Rights Reserved Reading location - IP/workstation name: [email or web address]
--- NOTE | 2019-01-28 12:47 | ST Modified Barium Swallow ---
Recommendation - Recommendations Recommendations: No oral or pharyngeal phase swallowing defiicts seen. Patient may benefit from gastroenterology consult due to nature of symptoms. Medical Diagnoses - Medical Diagnoses Medical Diagnosis Description & ICD-10 Code(s): dysphagia R13.10 Other Medical Diagnoses/Co-Morbidities: per patient report: reflux, "eye problems" - ICD-10 Tx Diagnosis Coding (1) Other dysphagia ICD-10 Code(s): R13.19 - OTHER DYSPHAGIA ST Modified Barium Swallow - General Date: 01/28/19 Referring Physician: Dr. Cosme Magaña Date of Onset: 01/15/17 - approximate onset date Reason for Referral: difficulty swallowing - History History obtained from: Patient, Family - daughter present -: Medical - per patient and family report: Patient has had difficulty swallowing for "a year or two". Patient reports that during meals, about half way through she feels that she can't eat anymore because "it hasn't gone down". Reports this mainly happening with foods, but can also happen with liquids. This is causing the patient to have reduced intake at meals and reduced desire to eat. Also reports coughing and throat clearing occuring throughout the day, but more so around meals. Specifically states that "cold things" maker her cough. Also reports having some thick secretions in her throat throughout the day and after meals. She and her daughter report no pneumonia or bronchitis in the past 6 months. Medications: per patient report: pepcid, tylenol Allergies: no food allergies reported, see medical record for medication allergies. - Functional Status Prior Functional Status: INDEPENDENT: feeding - independent Current Functional Limitations: feeding - decreased intake - Subjective Patient/caregiver goal(s): improve intake, r/o aspiration Cognitive-Linguistic Function: Functional Speech Intelligibility: WNL Current Nutritional Means: PO Current PO diet: Regular Current symptoms: Poor intake, Coughing, c/o Globus sensation Pain: Patient reports, 0/5 - Objective Assessment: Upright, Left Lateral - Food Trials Used Food trials used: Thin liquids, Pureed, Regular The patient: Was Able to Self Feed - Oral-Motor Skills Dentition: Dentures-Upper Velo-pharyngeal function: Unremarkable Laryngeal Function: clear voicing - Assessment Oral prep: Normal Labial closure: Adequate Leakage: None Mastication: Adequate Lingual Movement: Normal Oral stage: Normal for this Procedure - Pharyngeal Stage Initiation of Pharyngeal Stage Reflex: Normal - liquids were occasionally seen to be held in posterior oral cavity/upper pharynx prior to the swallow, however, this appeared to be volitional and did not indicated a delayed swallow reflex Decreased laryngeal elevation: No Reduced Velopharyngeal Closure: no Reduced pressure generation: No reduced tongue-based retraction: No Pre-swallow pooling in valleculae: Mild Pre-Swallow pooling in pyriforms: None Reduced Thyro-Hyoid approximation: No Reduced epiglottic excursion: No Reduced pharyngeal peristalsis/contraction: No Post-swallow residulas vallecular: None Post-Swallow residuals in pyriforms: None Reduced Cricopharyngeal opening: No - Fall Risk Assessment Medications/Conditions that increase fall risks include: Antidepressants, sedatives, anti-arrhythmic, diuretic, benzodiazipenes, neuroleptics. BP regulation problems, cardiac problems, balance or gait deficits, neurological problems. Fall Risk Actions Taken: No action needed - Behavioral Observations During evaluation process patient: was pleasant, was cooperative, able to answer questions - Treatment / Educational Needs: Treatment/Education Needs: Treatment consisted of patient education on the role of the Speech Pathologist. Patient's plan of care and golas were communicated as well as scheduling and attendance policies. Recommendations for initial home program were shared. Patient demonstrated understanding and verbalized agreement. - Impression/Summary Laryngeal Penetration: No Tracheal Aspiration: no - Occasional throat clearing heard throughout the study, however, no aspiration or penetration seen with these events Patient presents with: Normal swallow at eval Risk of Aspiration: Minimal Risk of nutritional compromise: Mild Evaluation and Findings: No signs of oral or pharyngeal dysphagia. Possible GI component due to nature of symptoms. - Recommendations Solid diet recommendations: Regular Liquid Diet Modification: Thin Pt/Family education and followup with MD: Yes Dysphagia therapy with CHIP DRIER: no Reflux Precautions: Taught to Patient, Taught to Family Information, Precautions and Recommendations: Patient (Written), Patient (Verbal), Family Member (Written), Family Member (Verbal) - Time Total Time: 30 - Plan of Care Strategies to optimize patient understanding include:: ongoing assessment of educational needs, implementation of educational strategies, and re-education. - - -: Thank you for the opportunity to work with this patient and his/her family. Should you have any questions about this patient's plan or progress, I can be reached at [phone].
== END ==
LOC: RAD 10:59
PROVIDERS: ATTEND Family Medicine
DX: R13.19 Other dysphagia (principal)
CPT/HCPCS: 74230

== ENCOUNTER → 2019-05-14 | Outpatient (CLI) | payer MEDICARE, OTHER ==
--- NOTE | 2019-05-14 12:36 | RADIOLOGY REPORT (SQ) ---
EXAM DESCRIPTION: CT HEAD WITHOUT COMPLETED DATE/TIME: 05/14/2019 12:15 pm REASON FOR STUDY: (S09.90XA)UNSPECIFIED INJURY OF HEAD, INITIAL ENCOUNTER R51 HEADACHE S09.90XA UN SPECIFIED INJURY OF HEAD, INITIAL ENCOUNTER COMPARISON: None. TECHNIQUE: Axial images acquired through the brain without intravenous contrast. Images reviewed wi th bone, brain and subdural windows. Additional sagittal and coronal reconstructions were generated. Images stored on PACS. All CT scanners at this facility use dose modulation, iterative reconstruction, and/or weight based d osing when appropriate to reduce radiation dose to as low as reasonably achievable (ALARA). [facility]: Dose Right [facility]: CareDose [facility]: Dose Right [facility]: Teradose 4D [facility]: [employer] RADIATION DOSE: CT Rad equipment meets quality standard of care and radiation dose reduction techniq ues were employed. CTDIvol: 48.6 mGy. DLP: 929 mGy-cm. mGy. LIMITATIONS: None. FINDINGS: VENTRICLES: Normal size and contour. CEREBRUM: No masses. No hemorrhage. No midline shift. No evidence for acute infarction. Few scatte red areas of low density in the white matter most likely chronic small vessel ischemic changes. CEREBELLUM: No masses. No hemorrhage. No alteration of density. No evidence for acute infarction. EXTRAAXIAL SPACES: No fluid collections. No masses. ORBITS AND GLOBE: No intra- or extraconal masses. Normal contour of globe without masses. CALVARIUM: No fracture. PARANASAL SINUSES: No fluid or mucosal thickening. SOFT TISSUES: No mass or hematoma. 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 Mild small vessel white matter disease. No noncontras t CT findings to explain headache. EVIDENCE OF ACUTE STROKE: NO. COMMENT: Quality ID # [id number]: Final reports with documentation of one or more dose reduction techniques (e.g., Automated exposure control, adjustment of the mA and/or kV according to patient size, use of iterative reconstruction technique) TECHNICAL DOCUMENTATION: JOB ID: [id number] [employer]- All Rights Reserved Reading location - IP/workstation name: [email or web address]
== END ==
LOC: RAD 11:59
PROVIDERS: ATTEND Family Medicine
DX: S09.90XA Unspecified injury of head, initial encounter (principal); R51 Headache; X58.XXXA Exposure to other specified factors, initial encounter; Y93.9 Activity, unspecified; Y92.9 Unspecified place or not applicable
CPT/HCPCS: 70450

== ENCOUNTER → 2019-05-14 | Outpatient (CLI) | payer MEDICARE, OTHER ==
--- NOTE | 2019-05-14 13:03 | RADIOLOGY REPORT (SQ) ---
EXAM DESCRIPTION: KNEE LEFT 2 VIEWS COMPLETED DATE/TIME: 05/14/2019 12:53 pm REASON FOR STUDY: LEFT WRIST PAIN; ACUTE PAIN OF LEFT KNEE M25.532 PAIN IN LEFT WRIST M25.562 PAIN IN LEFT KNEE COMPARISON: None. NUMBER OF VIEWS: Two views. TECHNIQUE: AP and lateral radiographic images acquired of the left knee. LIMITATIONS: None. FINDINGS: MINERALIZATION: Normal. BONES: No acute fracture or dislocation. No worrisome bone lesions. JOINT: No effusion. SOFT TISSUES: No soft tissue swelling. No radio-opaque foreign body. OTHER: No other significant finding. IMPRESSION: NEGATIVE STUDY OF THE LEFT KNEE. NO RADIOGRAPHIC EVIDENCE OF ACUTE INJURY. TECHNICAL DOCUMENTATION: JOB ID: [id number] [employer]- All Rights Reserved Reading location - IP/workstation name: [email or web address]
--- NOTE | 2019-05-14 13:03 | RADIOLOGY REPORT (SQ) ---
EXAM DESCRIPTION: WRIST LEFT 3 VIEWS COMPLETED DATE/TIME: 05/14/2019 12:53 pm REASON FOR STUDY: LEFT WRIST PAIN; ACUTE PAIN OF LEFT KNEE M25.532 PAIN IN LEFT WRIST M25.562 PAIN IN LEFT KNEE COMPARISON: None. NUMBER OF VIEWS: Three views. TECHNIQUE: AP, lateral, and oblique radiographic images acquired of the left wrist. LIMITATIONS: None. FINDINGS: MINERALIZATION: Normal. BONES: No obvious acute fracture. Abnormal carpal bones which may be related to degenerative disease . Scaphoid bone is not identified. SOFT TISSUES: No soft tissue swelling. No foreign body. OTHER: There are degenerative changes in the radiocarpal joint and carpal bones. There are degenerat lilian changes in the 1st carpal/metacarpal joint. 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 Recommend correlation with the images of the rig ht wrist. No acute fracture. TECHNICAL DOCUMENTATION: JOB ID: [id number] [employer]- All Rights Reserved Reading location - IP/workstation name: [email or web address]
== END ==
LOC: OD 12:25
PROVIDERS: ATTEND Physician Assistant
DX: M25.532 Pain in left wrist (principal); M25.562 Pain in left knee